=== PATIENT | male | born 1950 | race Caucasian/White ===

== ENCOUNTER 2023-06-18 16:24 | Inpatient (IN) ==
--- NOTE | 2023-06-18 17:21 | DR.GENAD ---
HPI Time Seen Time Seen by Provider: 06/18/23 17:20 PCP Primary Care Physician: Ольга Complaint/Symptoms Chief Complaint Doctors Comments: 72-year-old male presents for evaluation. Having increasing swelling, redness and drainage from the medial aspect of his right foot. Did fall off not too long ago, but did not think he had a wound of the area. Area has gotten worse over the last week. It has been draining over the past few days. Patient with a history of diabetes, denies previous ulceration of the area. He denies any fever, but he is cold all the time. He denies any bowel or bladder issues, no cough or shortness of breath. Chief Complaint:: Puss draining from right foot mass Self Treatment fo Chief Complaint: N/A COVID-19 Coronavirus risk:travel/contact w/high risk person: No Has patient experienced Coronavirus symptoms: No Nurses notes reviewed Nurses Notes Review: Yes Source History Provided: Patient Mode of Arrival Mode of Arrival: Ambulatory Timing Onset of Chief Complaint: 06/16/23 PMH PMH Past Medical History: Yes Past Medical History: Depression, Diabetes, GERD and Hypertension Past Surgical History: Yes Past Surgical History Comment: Prostate, skin cancer removal, Family History History of Family Medical Conditions: Yes Family Medical History: DC and Heart Failure Family Medical History Comment: Father= DC Mother = CHF Social History Does patient currently use any type of tobacco product: Yes Have you used tobacco products in the last 12 months: Yes Type of Tobacco Use: Cigars How many years tobacco product used: 50 Does any household member use tobacco: No Alcohol Use: None Do you use any recreational Drugs:: No Lives With: Family Travel Risk Coronavirus risk:travel/contact w/high risk person: No Has patient experienced Coronavirus symptoms: No Infectious screening In the last 2 months have you had wt loss of >10#?: NO Have you had fever, night sweats or hemotysis?: No Have you traveled outside the country in the last 6 months?: No Isolation: Standard ROS Review of Systems Constitutional: Chills Eyes: No Symptoms Reported ENTM: No Symptoms Reported Respiratoy: No Symptoms Reported Cardiovascular: No Symptoms Reported Gastrointestinal/Abdominal: No Symptoms Reported Genitourinary: No Symptoms Reported Neurological: No Symptoms Reported Musculoskeletal: See HPI Integumentary: See HPI Hematologic/Lymphatic: No Symptoms Reported All Other Systems: Reviewed and Negative PE Vital Signs Vitals: Vital Signs Temperature 99.2 F Pulse Rate 93 Respiratory Rate 17 Blood Pressure 152/74 O2 Sat by Pulse Oximetry 98 General General Appearance: Alert and In No Apparent Distress Eyes Eye exam: PERRL and EOMI ENT ENT Exam: Normal Exam, Normal Oropharynx and Mucous Membranes Moist Neck Neck Exam: Normal Inspection Respiratory Respiratory Exam: Normal Lung Sounds Bilat; negative Accessory Muscle Use or Respiratory Distress Cardiovascular Cardiovascular Exam: Regular Rate, Normal Rhythm and Normal Heart Sounds Abdominal Exam Abdominal Exam: Normal Bowel Sounds and Soft; negative Tenderness Neurologic Neurological Exam: Alert, Oriented X3 and CN II-XII Intact; negative Motor Sensory Deficit Skin Skin Exam: Warm and Dry Other Exam Other Exam: R foot - + large, draining wound of medial right foot, 5 x 6 cms, with marked surrounding erythema. + tenderness. COURSE Treatment Treatment: 72-year-old male, history of diabetes, presents with a draining foot ulceration over the past week. Clinically with a draining abscess of the foot, with surrounding cellulitis of the foot. Work-up initiated. Patient given IV fluids. Cultures obtained - ordered IV zosyn, IV vancomycin. Consulted with Dr Billings, foot will need drainage. X-rays of left foot obtained - + some gas evident in the soft tissue. Discussed with Dr Billings - will admit the pt, coming to see tonight. ROR Labs Reviewed Laboratory Results Reviewed?: Yes 06/19/23 05:21 06/19/23 05:21 Laboratory: 06/18/23 17:45 Foot - Right Wound Gram Stain - Final WBC 17.5 X10^3/uL (3.6-10.0) H 06/18/23 17:36 RBC 4.52 X10^6/uL (4.7-6.0) L 06/18/23 17:36 Hgb 12.5 g/dL (13.5-18.0) L 06/18/23 17:36 Hct 36.6 % (42.0-54.0) L 06/18/23 17:36 MCV 81.0 fL (80.0-100.0) 06/18/23 17:36 MCH 27.6 pg (27.0-34.0) 06/18/23 17:36 MCHC 34.0 g/dL (33.0-35.0) 06/18/23 17:36 RDW 12.9 % (11.6-16.5) 06/18/23 17:36 Plt Count 521 X10^3/uL (150.0-450.0) H 06/18/23 17:36 MPV 7.6 fL (7.4-11.0) 06/18/23 17:36 Neut % (Auto) 83.8 % (42.0-75.0) H 06/18/23 17:36 Lymph % (Auto) 5.7 % (21.0-51.0) L 06/18/23 17:36 [place] % (Auto) 8.5 % (0.0-13.0) 06/18/23 17:36 Eos % (Auto) 1.3 % (0.9-2.9) 06/18/23 17:36 Baso % (Auto) 0.7 % (0.2-1.0) 06/18/23 17:36 Neut # (Auto) 14.7 x10^3/uL (2.2-4.8) H 06/18/23 17:36 Lymph # (Auto) 1.0 X10^3/uL (1.3-2.9) L 06/18/23 17:36 [place] # (Auto) 1.5 x10^3/uL (0.3-0.8) H 06/18/23 17:36 Eos # (Auto) 0.2 x10^3/uL (0.0-0.2) 06/18/23 17:36 Baso # (Auto) 0.1 X10^3/uL (0.0-0.1) 06/18/23 17:36 Absolute Nucleated RBC 0.1 /100WBC 06/18/23 17:36 Sodium 134 mmol/L (136-145) L 06/18/23 17:36 Corrected Sodium 134 mmol/L (136-145) L 06/18/23 17:36 Potassium 4.3 mmol/L (3.5-5.1) 06/18/23 17:36 Chloride 96 mmol/L (98-107) L 06/18/23 17:36 Carbon Dioxide 31.8 mmol/L (21-32) 06/18/23 17:36 BUN 24 mg/dL (7-18) H 06/18/23 17:36 Creatinine 1.23 mg/dL (0.70-1.30) 06/18/23 17:36 Est GFR (MDRD) Af Amer > 60 (>60) 06/18/23 17:36 Est GFR (MDRD) Non-Af > 60 (>60) 06/18/23 17:36 Glucose 114 mg/dL (65-99) H 06/18/23 17:36 Lactic Acid 1.1 mmol/L (0.4-2.0) 06/18/23 17:36 Calcium 9.1 mg/dL (8.5-10.1) 06/18/23 17:36 Corrected Calcium 10.9 mg/dL (8.5-10.1) H 06/18/23 17:36 Total Bilirubin 0.70 mg/dL (0.2-1.0) 06/18/23 17:36 AST 34 Units/L (15-37) 06/18/23 17:36 ALT 34 Units/L (12-78) 06/18/23 17:36 Alkaline Phosphatase 189 Units/L (46-116) H 06/18/23 17:36 Total Protein 7.4 g/dL (6.4-8.2) 06/18/23 17:36 Albumin 1.7 g/dL (3.4-5.0) L 06/18/23 17:36 Globulin 5.7 g/dL (2.5-4.5) H 06/18/23 17:36 Albumin/Globulin Ratio 0.3 Ratio (1.1-2.1) L 06/18/23 17:36 XRAY XRAY Interpreted by: Self X-ray Results: + gas in soft tissue Opioid Opioid Risk Tool Age (Spike box if 16-45): No History of Preadolescent Sexual Abuse: No Total: 0 Total Score Risk Category: Low Risk Copyright: Orville NAVARRO predicting aberrant behaviors Discharge Plan Diagnosis Discharge Problem: Abscess of right foot, Cellulitis of right foot Discharge Plan Patient Disposition: 09 ADMITTED INPATIENT Condition: Stable
[2023-06-18] MEDS ORDERED: NS 500 ML IV 500 ML IV ONE ×2 (17:28→17:30)
[2023-06-18 17:51] LABS: BASOPHILS # (AUTO) 0.1 X10^3/uL (0.0-0.1); BASOPHILS % (AUTO) 0.7 % (0.2-1.0); EOSINOPHILS # (AUTO) 0.2 x10^3/uL (0.0-0.2); EOSINOPHILS % (AUTO) 1.3 % (0.9-2.9); HEMATOCRIT 36.6 % (42.0-54.0); HEMOGLOBIN 12.5 g/dL (13.5-18.0); LYMPHOCYTES % (AUTO) 5.7 % (21.0-51.0); MEAN CORPUSCULAR HEMOGLOBIN 27.6 pg (27.0-34.0); MEAN PLATELET VOLUME 7.6 fL (7.4-11.0); MONOCYTES # (AUTO) 1.5 x10^3/uL (0.3-0.8); MONOCYTES % (AUTO) 8.5 % (0.0-13.0); NEUTROPHILS # (AUTO) 14.7 x10^3/uL (2.2-4.8); NEUTROPHILS % (AUTO) 83.8 % (42.0-75.0); PLATELET COUNT 521 X10^3/uL (150.0-450.0); RED BLOOD COUNT 4.52 X10^6/uL (4.7-6.0); RED CELL DISTRIBUTION WIDTH 12.9 % (11.6-16.5); WHITE BLOOD COUNT 17.5 X10^3/uL (3.6-10.0)
[2023-06-18 18:07] LABS: ALANINE AMINOTRANSFERASE 34 Units/L (12-78); ALBUMIN 1.7 g/dL (3.4-5.0); ALKALINE PHOSPHATASE 189 Units/L (46-116); ASPARTATE AMINO TRANSFERASE 34 Units/L (15-37); BLOOD UREA NITROGEN 24 mg/dL (7-18); CALCIUM 9.1 mg/dL (8.5-10.1); CARBON DIOXIDE 31.8 mmol/L (21-32); CHLORIDE 96 mmol/L (98-107); COR CA(FOR HYPOALB) 10.9 mg/dL (8.5-10.1); COR NA(FOR HYPERGLY) 134 mmol/L (136-145); CREATININE 1.23 mg/dL (0.70-1.30); GLUCOSE 114 mg/dL (65-99); POTASSIUM 4.3 mmol/L (3.5-5.1); SODIUM 134 mmol/L (136-145); TOTAL PROTEIN 7.4 g/dL (6.4-8.2); eGFR NON BLACK RACES > 60 (>60)
[2023-06-18] MEDS ORDERED: ZOSYN VIAL 3.375 GRAMS 3.375 G in NS 100 ML IV 100 ML IV STA (18:11)
[2023-06-18] MEDS ORDERED: VANCOMYCIN HCL IV STA (18:11)
[2023-06-18] MEDS ORDERED: NS 100 ML IV 100 ML ONE (18:18)
[2023-06-18] MEDS ORDERED: ZOSYN VIAL 3.375 GRAMS IV ONE (18:18)
[2023-06-18] MEDS ORDERED: VANCOMYCIN IV *PREMIX 1 G/200 ML BAG 1 G/200 ML PIGGYBACK IV ONE (18:30)
[2023-06-18] MEDS ORDERED: VANCOMYCIN IV *PREMIX 1 G/200 ML BAG 1 G/200 ML PIGGYBACK IV STA (19:05)
[2023-06-18] MEDS ORDERED: PHARMACY CONSULT - VANCOMYCIN XX SCH (21:27)
[2023-06-18] MEDS ORDERED: CONSULT PHARMACY - POTASSIUM & MAGNESIUM XX SCH (21:27)
--- NOTE | 2023-06-18 22:10 | RAD ---
EXAM:FOOT, RIGHTHISTORY:Pus draining from right foot mass;COMPARISON:None.TECHNIQUE:AP, oblique and lateral views were acquiredFINDINGS:There is subluxation along the tarsometatarsal row compatible with a Charcot foot. There is gas in the soft tissues predominantly on the dorsum of the foot but also to some extent on the plantar aspect. There are some possible lucent areas in the bone of the base of the 2nd metatarsal and this raises concern for osteomyelitis. Diffuse vascular calcifications are present.IMPRESSION:1. Fallen arch/midfoot compatible with Charcot foot.2. Definite infection in the soft tissues and possible osteomyelitis.THIS IS AN ELECTRONICALLY VERIFIED FINAL [id number]/2023 10:05 PM - Electronically signed by Portillo Babcock MD
[2023-06-18 22:12] VITALS: BMI 25.9
[2023-06-18] MEDS ORDERED: HIBICLENS WASH EXT ONE (22:13)
[2023-06-18] MEDS: D5 1/2 NS 1,000 ML 1,000 ML IV SCH (22:19)
--- NOTE | 2023-06-18 23:08 | DR.H&P ---
H&P History & Physical for Day of: H&P Date: 06/18/23 Chief Complaint Chief Complaint: 72 yo male presented to the ER with large abscess to the medial aspect of the right foot with inflammation . Patient is diabetic with a greater than 50 year tobacco use history . Also with history of depression, GERD and history of prostate cancer. Allergies Allergies Allergy/AdvReac Type Severity Reaction Status Date / Time No Known Allergies Allergy Verified 06/18/23 18:52 History of Present Illness History of Present Illness: see above Past Medical History Past Medical History: Depression, Diabetes, GERD and Hypertension Additional Medical History: Hx of prostate cancer Past Surgical History Additional Surgical History: history of prostate cancer Family History Family Medical History: Diabetes Mellitus, Cancer and Heart Failure Social History Does patient currently use any type of tobacco product: No Have you used tobacco products in the last 12 months: No Type of Tobacco Use: Cigars How many years tobacco product used: 50 Does any household member use tobacco: No Alcohol Use: None Drug Use: None Medications Home Medications: Vitamin D glipizide insulin lisinopril metformin Labs 06/18/23 17:36 06/18/23 17:36 Labs: 06/18/23 17:45 Foot - Right Wound Gram Stain - Final Laboratory WBC 17.5 X10^3/uL (3.6-10.0) H 06/18/23 17:36 RBC 4.52 X10^6/uL (4.7-6.0) L 06/18/23 17:36 Hgb 12.5 g/dL (13.5-18.0) L 06/18/23 17:36 Hct 36.6 % (42.0-54.0) L 06/18/23 17:36 MCV 81.0 fL (80.0-100.0) 06/18/23 17:36 MCH 27.6 pg (27.0-34.0) 06/18/23 17:36 MCHC 34.0 g/dL (33.0-35.0) 06/18/23 17:36 RDW 12.9 % (11.6-16.5) 06/18/23 17:36 Plt Count 521 X10^3/uL (150.0-450.0) H 06/18/23 17:36 MPV 7.6 fL (7.4-11.0) 06/18/23 17:36 Neut % (Auto) 83.8 % (42.0-75.0) H 06/18/23 17:36 Lymph % (Auto) 5.7 % (21.0-51.0) L 06/18/23 17:36 [place] % (Auto) 8.5 % (0.0-13.0) 06/18/23 17:36 Eos % (Auto) 1.3 % (0.9-2.9) 06/18/23 17:36 Baso % (Auto) 0.7 % (0.2-1.0) 06/18/23 17:36 Neut # (Auto) 14.7 x10^3/uL (2.2-4.8) H 06/18/23 17:36 Lymph # (Auto) 1.0 X10^3/uL (1.3-2.9) L 06/18/23 17:36 [place] # (Auto) 1.5 x10^3/uL (0.3-0.8) H 06/18/23 17:36 Eos # (Auto) 0.2 x10^3/uL (0.0-0.2) 06/18/23 17:36 Baso # (Auto) 0.1 X10^3/uL (0.0-0.1) 06/18/23 17:36 Absolute Nucleated RBC 0.1 /100WBC 06/18/23 17:36 Sodium 134 mmol/L (136-145) L 06/18/23 17:36 Corrected Sodium 134 mmol/L (136-145) L 06/18/23 17:36 Potassium 4.3 mmol/L (3.5-5.1) 06/18/23 17:36 Chloride 96 mmol/L (98-107) L 06/18/23 17:36 Carbon Dioxide 31.8 mmol/L (21-32) 06/18/23 17:36 BUN 24 mg/dL (7-18) H 06/18/23 17:36 Creatinine 1.23 mg/dL (0.70-1.30) 06/18/23 17:36 Est GFR (MDRD) Af Amer > 60 (>60) 06/18/23 17:36 Est GFR (MDRD) Non-Af > 60 (>60) 06/18/23 17:36 Glucose 114 mg/dL (65-99) H 06/18/23 17:36 Lactic Acid 1.1 mmol/L (0.4-2.0) 06/18/23 17:36 Calcium 9.1 mg/dL (8.5-10.1) 06/18/23 17:36 Corrected Calcium 10.9 mg/dL (8.5-10.1) H 06/18/23 17:36 Total Bilirubin 0.70 mg/dL (0.2-1.0) 06/18/23 17:36 AST 34 Units/L (15-37) 06/18/23 17:36 ALT 34 Units/L (12-78) 06/18/23 17:36 Alkaline Phosphatase 189 Units/L (46-116) H 06/18/23 17:36 Total Protein 7.4 g/dL (6.4-8.2) 06/18/23 17:36 Albumin 1.7 g/dL (3.4-5.0) L 06/18/23 17:36 Globulin 5.7 g/dL (2.5-4.5) H 06/18/23 17:36 Albumin/Globulin Ratio 0.3 Ratio (1.1-2.1) L 06/18/23 17:36 Review of Systems Constitutional: See HPI Eyes: No Symptoms Reported ENT: No Symptoms Reported Respiratory: No Symptoms Reported Cardiovascular: No Symptoms Reported Gastrointestinal: No Symptoms Reported Genitourinary: No Symptoms Reported Musculoskeletal: No Symptoms Reported Skin: See HPI Neurological: No Symptoms Reported Physical Exam Vital Signs: Vital Signs Temperature 98.2 F Temperature 99.2 F Pulse Rate [Left Radial] 89 Pulse Rate 93 Respiratory Rate 20 Respiratory Rate 20 Respiratory Rate 17 Blood Pressure [Right Arm] 179/79 Blood Pressure 152/74 O2 Sat by Pulse Oximetry 95 O2 Sat by Pulse Oximetry 98 O2 Sat by Pulse Oximetry 98 Oriented: Normal, Time, Person and Place Eyes: Normal Ear: Normal Nose: Normal Throat: Normal Respiratory: Clear Throughout Cardiovascular: Normal and Other (Cannot palpate pulses either ankle. ) : Normal Auscultation: Bowel Sounds: Normal Palpation: Normal Tenderness: Normal Skin: Tender and Wound (10 cm abscess to medial right foot . surrounding cellulitis ) Musculoskeletal: Normal Psychiatric: Anxiety Mood Description: Calm Affect: Normal Speech Pattern: Clear Assessment/Plan (1) Atherosclerosis of [place] arteries of extremities with intermittent claudication, right leg: Status: Acute Plan: obtain CTA of aorta with runoff [place] (2) Abscess of right foot: Status: Acute Plan: IV antibiotics and will plan incision and drainage of right foot a bscess and place wound vacuum. (3) Cellulitis of right foot: Status: Acute
--- NOTE | 2023-06-18 23:31 | EKG ---
Test Reason : surgery Blood Pressure : */* mmHG Vent. Rate : 90 BPM Atrial Rate : 90 BPM P-R Int : 162 ms QRS Dur : 86 ms QT Int : 378 ms P-R-T Axes : 20 0 51 degrees QTc Int : 462 ms Normal sinus rhythm Normal ECG No previous ECGs available Confirmed by Tejas Li ([id number]) on 06/19/2023 7:56:12 AM Referred By: Confirmed By: Tejas Li
[2023-06-19] MEDS: ZOSYN VIAL 3.375 GRAMS 3.375 G in NS 100 ML IV 100 ML IV SCH ×3 (03:16→21:56)
[2023-06-19] MEDS ORDERED: OMNIPAQUE 350 mg/mL 100 mL BTL 100 ML ONE (03:54)
[2023-06-19] MEDS ORDERED: OMNIPAQUE 350 mg/mL 50 mL BTL 50 ML ONE (03:54)
[2023-06-19] MEDS ORDERED: NS 100 ML IV 100 ML ONE (03:54)
[2023-06-19] MEDS: NovoLIN R (or HumuLIN R) SC PRN ×3 (05:34→20:52)
[2023-06-19 05:49] LABS: BASOPHILS # (AUTO) 0.1 X10^3/uL (0.0-0.1); BASOPHILS % (AUTO) 0.6 % (0.2-1.0); EOSINOPHILS # (AUTO) 0.3 x10^3/uL (0.0-0.2); HEMATOCRIT 30.1 % (42.0-54.0); LYMPHOCYTES # (AUTO) 1.2 X10^3/uL (1.3-2.9); LYMPHOCYTES % (AUTO) 8.4 % (21.0-51.0); MEAN CORPUSCULAR HEMOGLOBIN 27.3 pg (27.0-34.0); MEAN CORPUSCULAR HGB CONC 34.3 g/dL (33.0-35.0); MEAN CORPUSCULAR VOLUME 79.7 fL (80.0-100.0); MEAN PLATELET VOLUME 7.9 fL (7.4-11.0); MONOCYTES # (AUTO) 1.4 x10^3/uL (0.3-0.8); MONOCYTES % (AUTO) 9.9 % (0.0-13.0); NEUTROPHILS # (AUTO) 11.3 x10^3/uL (2.2-4.8); NEUTROPHILS % (AUTO) 79.1 % (42.0-75.0); PLATELET COUNT 442 X10^3/uL (150.0-450.0); RED BLOOD COUNT 3.77 X10^6/uL (4.7-6.0); RED CELL DISTRIBUTION WIDTH 13.3 % (11.6-16.5); WHITE BLOOD COUNT 14.3 X10^3/uL (3.6-10.0)
[2023-06-19 05:51] LABS: HEMOGLOBIN 10.3 g/dL (13.5-18.0)
[2023-06-19 06:02] LABS: ALANINE AMINOTRANSFERASE 30 Units/L (12-78); ALBUMIN 1.3 g/dL (3.4-5.0); ALKALINE PHOSPHATASE 161 Units/L (46-116); ASPARTATE AMINO TRANSFERASE 28 Units/L (15-37); BLOOD UREA NITROGEN 24 mg/dL (7-18); CALCIUM 8.1 mg/dL (8.5-10.1); CARBON DIOXIDE 26.2 mmol/L (21-32); CHLORIDE 98 mmol/L (98-107); COR CA(FOR HYPOALB) 10.3 mg/dL (8.5-10.1); COR NA(FOR HYPERGLY) 135 mmol/L (136-145); CREATININE 1.13 mg/dL (0.70-1.30); GLUCOSE 198 mg/dL (65-99); POTASSIUM 3.7 mmol/L (3.5-5.1); SODIUM 133 mmol/L (136-145); TOTAL PROTEIN 5.8 g/dL (6.4-8.2); eGFR NON BLACK RACES > 60 (>60)
[2023-06-19] MEDS ORDERED: CONSULT PHARMACY - POTASSIUM & MAGNESIUM XX SCH (07:00)
[2023-06-19] MEDS ORDERED: MAG-OX TAB PO SCH (08:00)
[2023-06-19] MEDS: ZESTRIL TAB 5 MG PO SCH (08:40)
[2023-06-19] MEDS ORDERED: K-DUR TAB 20 MEQ PO SCH (09:00)
[2023-06-19] MEDS: D5 1/2 NS 1,000 ML 1,000 ML IV SCH ×3 (09:48→20:53)
[2023-06-19] MEDS: MAG-OX TAB PO SCH ×2 (09:52→10:51)
--- NOTE | 2023-06-19 10:06 | CT ---
EXAM:CTA AORTA WITH RUNOFFHISTORY:ISCHEMIC RIGHT LEG/FOOT W/CELLULITIS AND ABSCESS; DMCOMPARISON:NoneTECHNIQUE:Multiple CT axial images of the abdomen pelvis and lower extremity runoff were obtained before and after using IV contrast. 3D reconstructions utilizing axial MIPS imaging was performed and reviewed. Dose reduction techniques including Automated Exposure Control (AEC) and adjustment of mA and kV were utilized.Stenoses are measured using NASCET criteria.FINDINGS:Without contrast: Atherosclerotic calcification is present in the coronary arteries, aorta, and major arterial branches. Small calcified stone left kidney measures 3 mm.With contrast: Aorta has a normal caliber with no aneurysm, dissection, or stenosis. All 3 mesenteric vessels are patent. There are 2 arteries to each kidney.Common iliac and external iliac arteries are widely patent. Both internal iliac arteries are also patent.Right lower extremity: There is no significant femoropopliteal artery occlusion. There is a moderate to severe stenosis origin of the anterior tibial artery. The anterior tibial artery is the only continuous patent vessel that extends to the foot. Both the peroneal artery and posterior tibial artery have occlusions in the proximal calf.Left lower extremity: No significant femoropopliteal artery occlusion. There is a severe stenosis at the origin of the anterior tibial artery which is the only continuous patent vessel that extends to the foot. Tibioperoneal trunk is occluded. Posterior tibial artery in the peroneal artery are reconstituted near the ankle.Body: There is emphysema in the soft tissues of the right lower extremity. This is in the deep muscular compartment of the anterior lower leg and extends into the foot. If the patient does not have an open wound, this might represent emphysematous cellulitis.No biliary obstruction. No inflammation around the gallbladder. No hydronephrosis. No bowel obstruction. Small bilateral inguinal hernias contain fat.IMPRESSION:1. No significant inflow occlusion2. Single-vessel JIMMY runoff to each foot with severe proximal stenoses3. Findings suggesting emphysematous cellulitis in the right leg and foot4. Nonobstructing left renal calculusTHIS IS AN ELECTRONICALLY VERIFIED FINAL [id number]/19/2023 10:02 AM - Electronically signed by Carlos Flores MD
--- NOTE | 2023-06-19 10:56 | RAD ---
EXAM:CHEST x-ray, 1 VIEWHISTORY:PRE OP-RIGHT FOOT ABSCESS W/CELLULITIS -COMPARISON:None.FINDINGS:Trace fluid is seen in the right minor fissure. Borderline CHF appearance may be accentuated due to AP portable technique. No pneumothorax, focal infiltrate, or pleural effusion is seen.IMPRESSION:Borderline CHF appearance may be accentuated due to AP portable technique.THIS IS AN ELECTRONICALLY VERIFIED FINAL [id number]/19/2023 10:53 AM - Electronically signed by Abel Castellanos MD
[2023-06-19] MEDS ORDERED: BETADINE SOLN ONE (15:01)
[2023-06-19] MEDS ORDERED: MARCAINE 0.5% ONE (15:54)
[2023-06-19] MEDS ORDERED: NS 1,000 ML IV 1,000 ML ONE (16:14)
[2023-06-19] MEDS ORDERED: VERSED ONE (16:42)
[2023-06-19] MEDS ORDERED: DIPRIVAN VIAL 20 ML ONE (16:42)
[2023-06-19] MEDS ORDERED: FENTANYL VIAL INJ 100 mcg ONE (16:42)
--- NOTE | 2023-06-19 17:11 | OR.IMMED ---
IMMEDIATE POST-OP NOTE Immediate Post-Op Note Date of surgery/procedure: 06/19/23 Pre-Op Diagnosis: abscess/ cellulitis medial right foot Post-Op Diagnosis: same Procedure: Incise, drain , culture right foot wound and place wound vacuun Description of Procedure: dictated Surgeon/Lime Mixer: Manuelito Findings: As above, CTA only shows one vessel runoff to the right foot (anterior tibial artery) Specimens Removed: Culture right foot wound Estimated Blood Loss: minimal Complications: none Progress Notes: to floor with wound vacuum in place, continue IV antibiotics, resume diet, arteriogram and intervention right foot arteries tomorrow
[2023-06-19] MEDS: VANCOMYCIN IV *PREMIX 1.25 G/250 ML BAG 1.25 G/250 ML PIGGYBACK IV SCH (20:53)
[2023-06-20] MEDS: D5 1/2 NS 1,000 ML 1,000 ML IV SCH ×2 (00:21→20:22)
[2023-06-20] MEDS: ZOSYN VIAL 3.375 GRAMS 3.375 G in NS 100 ML IV 100 ML IV SCH ×4 (05:06→22:23)
[2023-06-20 05:07] LABS: BASOPHILS # (AUTO) 0.1 X10^3/uL (0.0-0.1); BASOPHILS % (AUTO) 0.8 % (0.2-1.0); EOSINOPHILS # (AUTO) 0.4 x10^3/uL (0.0-0.2); EOSINOPHILS % (AUTO) 2.9 % (0.9-2.9); HEMATOCRIT 30.1 % (42.0-54.0); HEMOGLOBIN 10.3 g/dL (13.5-18.0); LYMPHOCYTES # (AUTO) 1.1 X10^3/uL (1.3-2.9); LYMPHOCYTES % (AUTO) 7.5 % (21.0-51.0); MEAN CORPUSCULAR HEMOGLOBIN 27.5 pg (27.0-34.0); MEAN CORPUSCULAR HGB CONC 34.2 g/dL (33.0-35.0); MEAN CORPUSCULAR VOLUME 80.5 fL (80.0-100.0); MEAN PLATELET VOLUME 8.2 fL (7.4-11.0); MONOCYTES # (AUTO) 1.4 x10^3/uL (0.3-0.8); MONOCYTES % (AUTO) 9.9 % (0.0-13.0); NEUTROPHILS # (AUTO) 11.4 x10^3/uL (2.2-4.8); NEUTROPHILS % (AUTO) 78.9 % (42.0-75.0); PLATELET COUNT 476 X10^3/uL (150.0-450.0); RED BLOOD COUNT 3.74 X10^6/uL (4.7-6.0); RED CELL DISTRIBUTION WIDTH 13.3 % (11.6-16.5); WHITE BLOOD COUNT 14.5 X10^3/uL (3.6-10.0)
[2023-06-20 05:15] LABS: BLOOD UREA NITROGEN 24 mg/dL (7-18); CARBON DIOXIDE 25.9 mmol/L (21-32); CHLORIDE 100 mmol/L (98-107); COR NA(FOR HYPERGLY) 137 mmol/L (136-145); CREATININE 1.45 mg/dL (0.70-1.30); GLUCOSE 223 mg/dL (65-99); MAGNESIUM 1.8 mg/dL (2.0-2.9); POTASSIUM 3.9 mmol/L (3.5-5.1); SODIUM 134 mmol/L (136-145); eGFR NON BLACK RACES 51 (>60)
[2023-06-20] MEDS: NovoLIN R (or HumuLIN R) SC PRN ×2 (05:56→11:44)
[2023-06-20] MEDS ORDERED: CONSULT PHARMACY - POTASSIUM & MAGNESIUM XX SCH (07:00)
[2023-06-20] MEDS ORDERED: PHARMACY COMMENT IV NR (08:30)
[2023-06-20] MEDS ORDERED: K-DUR TAB 20 MEQ PO SCH (09:00)
[2023-06-20] MEDS: ZESTRIL TAB 5 MG PO SCH (09:32)
[2023-06-20] MEDS: MAG-OX TAB PO SCH ×2 (09:33→11:37)
[2023-06-20 09:41] LABS: CREATININE 1.56 mg/dL (0.70-1.30); VANCOMYCIN,TROUGH 12.6 ug/mL (15-20)
[2023-06-20] MEDS: VANCOMYCIN IV *PREMIX 1.25 G/250 ML BAG 1.25 G/250 ML PIGGYBACK IV SCH ×2 (10:03→20:22)
--- NOTE | 2023-06-20 10:03 | DR.OPNOTE ---
OP NOTE Pre-Op Diagnosis: Abscess/cellulitis right medial foot Post-Op Diagnosis: same Procedure Date Date Of Procedure: 06/19/23 Procedure: PROCEDURE : Incision and drainage abscess right foot immediately with debridement and placement wound vacuum NARRATIVE : The patient was taken to the operative suite and placed in the Supine position. He was given intravenous sedation supervised by myself. Time out for the procedure obtained . A total of 10 cc's of 0.5 Marcaine was injected into this area of the medial right foot. This was excised with a number 15 knife blade and electrocautery leaving a wound measuring 8 by 8 cm which was approximately 1 cm deep. All necrotic material removed sharply . The medial aspect of the talus bone was exposed. Hemostasis obtained with electrocautery . The wound covered with black foam and then adhesive sheeting. A 1 by 1 cm incision made over the black foam and extension of foam was taking up to the right ankle. The circular track pad placed over the foam over the ankle and this applied to continuous suction at 150 mm of mercury. The patient tolerated this well. Type of Anesthesia: Local (0.5% Marcaine) Anesthesia Comment: plus MAC Findings: as above Specimen/Pathology: cultures right foot abscess Type of Fluids Used:: Lactated Ringers EBL: < 10 cc Cultures: cultures of right foot abscess obtained Complications:: none Needle/Sponge Count:: correct Disposition/Condition: Pt. tolerated procedure without difficulty. Patient taken back to the floor in stable condition.
[2023-06-20] MEDS ORDERED: VISIPAQUE 100 ML ONE ×2 (13:16→15:52)
[2023-06-20] MEDS ORDERED: VISIPAQUE 50 ML ONE (13:16)
[2023-06-20] MEDS ORDERED: MARCAINE 0.5% ONE (15:32)
[2023-06-20] MEDS ORDERED: HEPARIN SODIUM IN D5W 75,000 UNITS/1,500 ML BAG ONE (15:33)
[2023-06-20] MEDS ORDERED: VERSED ONE (15:37)
[2023-06-20] MEDS ORDERED: KETAMINE 50 MG/5 ML-NACL SYRNG ONE (15:37)
[2023-06-20] MEDS ORDERED: FENTANYL VIAL INJ 100 mcg ONE (15:37)
[2023-06-20] MEDS ORDERED: DIPRIVAN VIAL 20 ML ONE ×2 (15:37→16:29)
[2023-06-20] MEDS ORDERED: HEPARIN SODIUM IN D5W 25,000 UNITS/500 ML BAG ONE (15:38)
[2023-06-20] MEDS ORDERED: HEPARIN SODIUM INJ 5000 UNITS ONE (16:02)
[2023-06-20] MEDS ORDERED: NS 1,000 ML IV 1,000 ML ONE (16:24)
[2023-06-20] MEDS ORDERED: PROTAMINE SULFATE 50 MG VIAL ONE (16:49)
--- NOTE | 2023-06-20 17:11 | OR.IMMED ---
IMMEDIATE POST-OP NOTE Immediate Post-Op Note Date of surgery/procedure: 06/20/23 Pre-Op Diagnosis: Critical ischemia right foot, abscess right medial foot Post-Op Diagnosis: same Procedure: diagnostic aortogram, diagnostic arteriogram right leg, severe stenosis take off of the right anterior tibial artery which is the only vessel to the foot, occluded peroneal and posterior tibial arteries of right foot Description of Procedure: dictated Surgeon/[place] Former: Manuelito Findings: severe stenosis at the take-off of the right anterior tibial artery ,rest of anterior tibial artery is patent into the foot. Occluded right peroneal and right posterior tibial artery with no obvious reconstitution in the foot. Significant collateral flow around the right foot. Estimated Blood Loss: < 100 cc Complications: none Progress Notes: Patient returned to the floor. Continue IV antibiotics and pain medication. Will begin aspirin. Anticoagulation will begin in a couple of days. Will consult Podiatry for his Charcot foot with medial protrusion of the navicular bone originating at the area of abscess. Continuing wound vacuum .
[2023-06-20] MEDS ORDERED: XOPENEX 1.25 MG/3 ML NEBULE NEB ONE ×2 (19:02→19:43)
[2023-06-20] MEDS ORDERED: CATAPRES TAB 0.1 MG PO ONE (19:09)
[2023-06-20] MEDS ORDERED: CATAPRES TAB 0.1 MG ONE (19:10)
[2023-06-21] MEDS: D5 1/2 NS 1,000 ML 1,000 ML IV SCH ×3 (04:12→21:05)
[2023-06-21] MEDS: ZOSYN VIAL 3.375 GRAMS 3.375 G in NS 100 ML IV 100 ML IV SCH ×3 (05:44→21:08)
[2023-06-21 06:04] LABS: BASOPHILS # (AUTO) 0.2 X10^3/uL (0.0-0.1); EOSINOPHILS # (AUTO) 0.5 x10^3/uL (0.0-0.2); EOSINOPHILS % (AUTO) 3.1 % (0.9-2.9); HEMATOCRIT 29.9 % (42.0-54.0); HEMOGLOBIN 10.2 g/dL (13.5-18.0); LYMPHOCYTES # (AUTO) 1.3 X10^3/uL (1.3-2.9); LYMPHOCYTES % (AUTO) 8.3 % (21.0-51.0); MEAN CORPUSCULAR HEMOGLOBIN 27.5 pg (27.0-34.0); MEAN CORPUSCULAR HGB CONC 34.1 g/dL (33.0-35.0); MEAN CORPUSCULAR VOLUME 80.6 fL (80.0-100.0); MEAN PLATELET VOLUME 7.8 fL (7.4-11.0); MONOCYTES # (AUTO) 1.3 x10^3/uL (0.3-0.8); MONOCYTES % (AUTO) 8.9 % (0.0-13.0); NEUTROPHILS # (AUTO) 11.9 x10^3/uL (2.2-4.8); NEUTROPHILS % (AUTO) 78.7 % (42.0-75.0); PLATELET COUNT 543 X10^3/uL (150.0-450.0); RED CELL DISTRIBUTION WIDTH 13.4 % (11.6-16.5); WHITE BLOOD COUNT 15.1 X10^3/uL (3.6-10.0)
[2023-06-21] MEDS: NovoLIN R (or HumuLIN R) SC PRN (06:06)
[2023-06-21 06:20] LABS: CALCIUM 8.1 mg/dL (8.5-10.1); CARBON DIOXIDE 26.2 mmol/L (21-32); CREATININE 1.73 mg/dL (0.70-1.30); MAGNESIUM 1.8 mg/dL (2.0-2.9); POTASSIUM 4.3 mmol/L (3.5-5.1)
--- NOTE | 2023-06-21 06:29 | DR.CONSULT ---
CONSULT Consultation for Day of: Date: 06/21/23 Chief Complaint Chief Complaint: charcot foot with abscess and exposed midfoot bones Allergies Allergies Allergy/AdvReac Type Severity Reaction Status Date / Time No Known Allergies Allergy Verified 06/18/23 18:52 History of Present Illness History of Present Illness: patient admitted saturday and taken to OR with [facility] for intervention as well as I&D of abscess of the foot on right. patient was found to have abscess and now with exposed bone due to charcot foot with midfoot dislocation. Past Medical History Past Medical History: Depression, Diabetes, GERD and Hypertension Additional Medical History: Hx of prostate cancer Past Surgical History Additional Surgical History: history of prostate cancer Family History Family Medical History: Diabetes Mellitus, Cancer and Heart Failure Social History Does patient currently use any type of tobacco product: No Have you used tobacco products in the last 12 months: No Type of Tobacco Use: Cigars How many years tobacco product used: 50 Does any household member use tobacco: No Alcohol Use: None Drug Use: None Medications Home Medications: No Known Allergies Allergy (Verified 06/18/23 18:52) CONTINUE taking the following medications cholecalciferol (vitamin D3) 50 mcg (2,000 unit) tablet (Vitamin D3) 100 mcg PO DAILY 06/18/23 [History] glipizide 10 mg tablet 10 mg PO QAM 06/18/23 [History] insulin glargine 100 unit/mL subcutaneous solution 10 unit subcut DAILYAC 06/18/23 [History] lisinopril 2.5 mg tablet 2.5 mg PO DAILY 06/18/23 [History] metformin 500 mg tablet 500 mg PO BID 06/18/23 [History] glipizide 10 mg tablet 5 mg PO 1700 06/19/23 [History] Physical Exam Vital Signs: Vital Signs Temperature 98.5 F Temperature 98.2 F Pulse Rate [Left Radial] 78 Pulse Rate [Left Radial] 83 Respiratory Rate 18 Respiratory Rate 17 Blood Pressure [Right Arm] 160/88 Blood Pressure [Right Arm] 140/66 O2 Sat by Pulse Oximetry 98 O2 Sat by Pulse Oximetry 97 Skin: Other (has increased calor to the leg ankle and foot. has open midfoot dislocation with exposed cueniform. he has presumed osteo of the midfoot with severe soft tissue defect that is 6.5cm x 7.5cm full thickness with exposed medial cuneiform. ) Plan (1) Atherosclerosis of [place] arteries of extremities with intermittent claudication, right leg: Status: Acute Narrative Support Text: Manuelito has performed intervention. (2) Abscess of right foot: Status: Acute Narrative Support Text: exposed midfoot cueniform at this time. will need return to OR as patient with still at risk limb with severe DM foot infection with dislcoation. will need stabilization with external fixator and washout with deep bone bx and reduction of foot. (3) Cellulitis of right foot: Status: Acute (4) Charcot arthropathy of midfoot: Status: Acute Narrative Support Text: will need midfoot stabilization due to fracture dislocation and exposd bone. ok to eat breakfast. will plan for reduction this evening after 4pm. NPO after 8am.
[2023-06-21] MEDS ORDERED: CONSULT PHARMACY - POTASSIUM & MAGNESIUM XX SCH (07:00)
[2023-06-21] MEDS: MAG-OX TAB PO SCH (09:36)
[2023-06-21] MEDS: LOVENOX INJ 40 MG SYR SC SCH (09:36)
[2023-06-21] MEDS: ZESTRIL TAB 5 MG PO SCH ×2 (09:37→22:30)
[2023-06-21] MEDS: VANCOMYCIN IV *PREMIX 1.25 G/250 ML BAG 1.25 G/250 ML PIGGYBACK IV SCH (10:15)
[2023-06-21] MEDS ORDERED: NS 1,000 ML IV 1,000 ML ONE (16:30)
[2023-06-21] MEDS ORDERED: ANCEF VIAL 1 GRAM ONE (16:30)
[2023-06-21] MEDS ORDERED: NS 100 ML IV 100 ML ONE (16:30)
[2023-06-21] MEDS ORDERED: VERSED ONE (16:37)
[2023-06-21] MEDS ORDERED: FENTANYL VIAL INJ 100 mcg ONE (16:37)
[2023-06-21] MEDS ORDERED: DIPRIVAN VIAL 20 ML ONE (16:37)
[2023-06-21] MEDS ORDERED: BRIDION ONE (16:37)
[2023-06-21] MEDS ORDERED: ZOFRAN INJ 4 MG VIAL ONE (16:38)
[2023-06-21] MEDS ORDERED: QUELICIN (OR ANECTINE) ONE (16:38)
[2023-06-21] MEDS ORDERED: ZEMURON 100 MG VIAL ONE (16:38)
[2023-06-21] MEDS ORDERED: PEPCID 20 MG VIAL ONE (16:38)
[2023-06-21] MEDS ORDERED: BETADINE SOLN ONE (16:41)
[2023-06-21] MEDS ORDERED: MARCAINE 0.25% INJ ONE (16:41)
[2023-06-21] MEDS ORDERED: SUPRANE ONE (16:48)
[2023-06-21] MEDS ORDERED: XYLOCAINE 2 % (PLAIN) ONE (16:52)
--- NOTE | 2023-06-21 18:03 | NOTE.SOAP ---
Soap Note Note for Day of Date of Exam: 06/21/23 Subjective Data Subjective Data: Appreciate Dr. Mueller's input. Patient to be taken to OR by Dr. Mueller for placement of external fixator right foot, possible removal of cuneiform which with the Charcot foot has caused the violation of the skin of the medial right foot. Will remain in hospital over weekend over the weekend with wound vacuum in place. Objective Data Temperature: 97.6 F Pulse Rate: 88 Respiratory Rate: 18 Blood Pressure: 186/107 O2 Sat by Pulse Oximetry: 99 Objective Data: Redness right foot continues to improve. Palpable right anterior tibial artery. Assessment Assessment: Cellulitis/ abscess, Charcot right foot and critical ischemia right foot all addressed or being addressed in order to salvage his foot. Plan Plan: As above , Continue IV antibiotics and wound vacuum. Begin Xarelto and aspirin tomorrow.
[2023-06-21] MEDS ORDERED: BARHEMSYS INJ IVP PRN (18:17)
[2023-06-21] MEDS ORDERED: ZOFRAN INJ 4 MG VIAL IVP PRN (18:17)
[2023-06-21] MEDS ORDERED: DILAUDID INJ IVP PRN (18:17)
[2023-06-21] MEDS ORDERED: REGLAN INJ 10 MG VIAL IVP PRN (18:17)
[2023-06-21] MEDS ORDERED: BENADRYL INJ 50 MG VIAL IVP PRN (18:17)
[2023-06-21] MEDS ORDERED: NORCO 5/325 MG TAB PO PRN (19:28)
[2023-06-21] MEDS ORDERED: PHARMACY COMMENT IV NR (20:30)
[2023-06-21 21:04] LABS: CREATININE 1.65 mg/dL (0.70-1.30)
[2023-06-21 21:09] LABS: VANCOMYCIN,TROUGH 23.4 ug/mL (15-20)
[2023-06-21] MEDS ORDERED: CATAPRES TAB 0.1 MG PO ONE (22:18)
[2023-06-21] MEDS: DILAUDID INJ IVP PRN (23:00)
[2023-06-22] MEDS: D5 1/2 NS 1,000 ML 1,000 ML IV SCH ×2 (02:57→16:38)
[2023-06-22] MEDS: DILAUDID INJ IVP PRN (05:45)
[2023-06-22] MEDS: ZOSYN VIAL 3.375 GRAMS 3.375 G in NS 100 ML IV 100 ML IV SCH ×3 (05:46→21:30)
[2023-06-22] MEDS: NovoLIN R (or HumuLIN R) SC PRN ×3 (07:22→16:38)
--- NOTE | 2023-06-22 07:49 | NOTE.SOAP ---
Soap Note Note for Day of Date of Exam: 06/22/23 Subjective Data Subjective Data: POD1 Open reduction, bone debridement with application of external fixator. Patient was pleasant this am with no significant pain or complaints. He is resting comfortably in bed eating breakfast. Denies any nausea, vomiting, fever, chills, chest pain, calf pain or SOB Objective Data Objective Data: Open wound to the medial aspect of the right foot at the instep. Wound has serosanguinous drainage and the cerement is intact within the void. Pin sites are clear of infection or drainage. Neurovascular status has not changed since pre op Assessment Assessment: S/P Bone debridement, open reduction and application of external fixation, Right leg (DOS: 06/21/2023) Charcot Arthropathy, Right Osteomyelitis, Right foot Plan Plan: Patient was seen at bedside POD1. Doing well, pain is well controlled on scheduled medication. Patient understands that this is a limb salvage procedure. Continue anticoagulants and IV antibiotics. Dressings were changed this am. PT gait train: WB at 50% to the RLE with assistive device. Dr. Mueller spoke to the patient's son yesterday and discussed discharge plan. Patient will need to be set up in a care facility ([place]) as he lives on his own and will need assistance. From podiatry standpoint, we will be monitoring through the weekend and if all is well, we would like to remove the antibiotic cement and apply a wound vac on Saturday.
[2023-06-22] MEDS ORDERED: MAG-OX TAB ONE (08:48)
[2023-06-22] MEDS: ZESTRIL TAB 5 MG PO SCH (08:55)
[2023-06-22] MEDS: MAG-OX TAB PO SCH (08:56)
[2023-06-22] MEDS: LOVENOX INJ 40 MG SYR SC SCH (08:57)
[2023-06-22] MEDS: VANCOMYCIN IV *PREMIX 1.25 G/250 ML BAG 1.25 G/250 ML PIGGYBACK IV SCH (09:10)
--- NOTE | 2023-06-22 13:20 | NOTE.SOAP ---
Soap Note Note for Day of Date of Exam: 06/22/23 Subjective Data Subjective Data: Doing well after drainage right foot abscess and revascularization right foot. Yesterday Dr. Mueller removed the right medial cuneiforms with osteromyelitis and applied external fixator, lengthened the Achllies and applied antibiotic impregnated cement in the right medial foot wound . Cement to be removed on Saturday and wound vacuum applied . Continue on IV antibiotics. HTN treated last night Objective Data Temperature: 97.8 F Pulse Rate: 71 Respiratory Rate: 18 Blood Pressure: 152/75 O2 Sat by Pulse Oximetry: 100 Objective Data: External fixator in place right foot . Nearly all redness resolved right foot Assessment Assessment: Abscess right foot with osteomyelitis and critical limb ischemia, s/o incision and drainage, revascularization right foot and subsequent removal infected right cuneiforms and placement external fixator. Plan Plan: Continue IV antibiotics. To OR Saturday to remove cement and place wound vacuum right medial foot.
[2023-06-22] MEDS: XARELTO PO SCH (20:33)
[2023-06-22] MEDS: XOPENEX 1.25 MG/3 ML NEBULE NEB PRN (21:45)
[2023-06-23] MEDS: D5 1/2 NS 1,000 ML 1,000 ML IV SCH ×3 (01:01→12:51)
[2023-06-23] MEDS ORDERED: CATAPRES TAB 0.1 MG PO ONE ×2 (04:12→17:27)
[2023-06-23] MEDS: XOPENEX 1.25 MG/3 ML NEBULE NEB PRN ×2 (04:42→17:20)
[2023-06-23] MEDS ORDERED: LOPRESSOR TAB 25 MG PO ONE (05:29)
[2023-06-23] MEDS: ZOSYN VIAL 3.375 GRAMS 3.375 G in NS 100 ML IV 100 ML IV SCH ×3 (05:41→21:35)
[2023-06-23] MEDS: NovoLIN R (or HumuLIN R) SC PRN ×4 (05:55→21:37)
--- NOTE | 2023-06-23 07:52 | NOTE.SOAP ---
Soap Note Note for Day of Date of Exam: 06/22/23 Subjective Data Subjective Data: POD2 Open reduction, bone debridement with application of external fixator. Patient doing well this am, he was found resting comfortably in bed. He denies any symptoms overnight and has not left his bed. Objective Data Objective Data: Open wound to the medial aspect of the right foot at the instep. Wound has continuous serosanguinous drainage and the cerement is intact within the void. Pin sites are clear of infection or drainage. Neurovascular status has not changed since pre op Assessment Assessment: S/P Bone debridement, open reduction and application of external fixation, Right leg (DOS: 06/21/2023) Charcot Arthropathy, Right Osteomyelitis, Right foot Plan Plan: Patient was seen at bedside POD2. Doing well, pain is well controlled on scheduled medication. Patient understands that this is a limb salvage procedure. Continue anticoagulants and IV antibiotics. Dressings were changed this am. PT gait train: WB at 50% to the RLE with assistive device. Patient will need to be set up in a care facility ([place]) as he lives on his own and will need assistance, haven't been able to get a hold of case management and will follow up tomorrow regarding rehab placement. From podiatry standpoint, we will keep the cerement within the wound site and explant it prior to patient being discharged. Noted that home vac supplies are in the room and I filled out home health instructions for the VAC.
[2023-06-23] MEDS: VANCOMYCIN IV *PREMIX 1.25 G/250 ML BAG 1.25 G/250 ML PIGGYBACK IV SCH (09:41)
[2023-06-23] MEDS: ASPIRIN EC 81 MG PO SCH (09:42)
[2023-06-23] MEDS: ZESTRIL TAB 5 MG PO SCH (09:42)
[2023-06-23] MEDS: XARELTO PO SCH ×2 (09:42→21:30)
--- NOTE | 2023-06-23 16:28 | NOTE.SOAP ---
Soap Note Note for Day of Date of Exam: 06/23/23 Subjective Data Subjective Data: Patient doing well. Main problem has been his hypertension. Otherwise very stable. Objective Data Temperature: 98.3 F Pulse Rate: 79 Respiratory Rate: 20 Blood Pressure: 160/80 O2 Sat by Pulse Oximetry: 99 Objective Data: Redness right foot resolved. External fixator in place . Biphasic right Anterior tibial artery. Assessment Assessment: S/P I & D abscess right foot, revascularization right foot, excision cuneiform right foot and placement in external fixator. Plan Plan: Continue IV antibiotics . To OR tomorrow to remove cement in right foot wound and place wound vacuum. Patient will be placed in SNF after that.
[2023-06-23] MEDS ORDERED: ZESTRIL TAB 5 MG PO ONE (16:57)
--- NOTE | 2023-06-23 17:19 | EKG ---
Test Reason : shortness of breath, hypertension Blood Pressure : */* mmHG Vent. Rate : 112 BPM Atrial Rate : 112 BPM P-R Int : 152 ms QRS Dur : 86 ms QT Int : 334 ms P-R-T Axes : 42 34 45 degrees QTc Int : 455 ms Sinus tachycardia Otherwise normal ECG When compared with ECG of 18-JUN-2023 23:21, No significant change was found Confirmed by Tejas Li ([id number]) on 06/24/2023 7:36:57 AM Referred By: Confirmed By: Tejas Li
[2023-06-23] MEDS ORDERED: VISTARIL PO PRN (17:38)
--- NOTE | 2023-06-23 18:30 | RAD ---
EXAM:CHEST, 1 VIEWHISTORY:r foot abscess with cellullitis sob;COMPARISON:One view of the chest performed on 06/19/2023.FINDINGS:SUPPORT DEVICES: None.HEART/MEDIASTINUM: The cardiac silhouette is normal in size with central vascular congestion.LUNGS: There are increased bilateral pulmonary opacities. Lung volumes are mildly reduced. No significant pleural effusion. No pneumothorax.ADDITIONAL FINDINGS: None.IMPRESSION:Central vascular congestion with probable bilateral edema/atelectasis.THIS IS AN ELECTRONICALLY VERIFIED FINAL [id number]/2023 6:27 PM - Electronically signed by Sha Mitchell MD
[2023-06-23] MEDS ORDERED: LASIX IVP ONE (18:36)
[2023-06-23] MEDS ORDERED: APRESOLINE INJ 20 MG VIAL IVP ONE (18:41)
--- NOTE | 2023-06-23 23:29 | DR.OPNOTE ---
OP NOTE Pre-Op Diagnosis: critical ichemia right foot Post-Op Diagnosis: ene Procedure Date Date Of Procedure: 06/20/23 Procedure: PROCEDURE: DIAGNOSTIC AORTOGRAM, DIAGNOSTIC ARTERIOGRAM RIGHT LEG, ATHERECTOMY AND BALLOON ANGIOPLASTY RIGHT ANTERIOR TIBIAL ARTERY NARRATIVE : The patient was taken to the operative suite and place in the supine position. The left groin and entire right leg were prepped and draped in sterile fashion. The patient was given intravenous sedation supervised by myself. Time out for the procedure obtained. Ultrasound used to identify the left femoral artery and the skin overlying it infiltrated with 0.5% Marcaine. Ultrasound then used to guide puncture of the left femoral artery and a 0.012 inch guide wire was placed. Incision made over the guide wire at the skin edge with a # 11 knife blade and a micro sheath placed over the guide wire into the left femoral artery The small guidewire exchanged for a 0.035 inch Advantage glide wire and the micro sheath exchanged for a 5 Fr vascular sheath Patient given 5000 units of intravenous heparin. Omni catheter was placed over the guide wire into the aorta and diagnostic aortogram carried out with the power injector showing normal aorta and normal iliac arteries . Omni catheter was used to steer the guide wire down the right common iliac artery to the distal right external iliac artery . Omni catheter was exchanged for a Lempster catheter and sequential arteriograms carried out of the right lower extremity showing normal proximal arteries with severe stenosis at the takeoff of the right anterior tibial artery, rest of the anterior tibial artery patent to the foot with good collateral flow around the right foot, occluded right peroneal and right posterior tibial arteries with no reconstitution. The 5 Fr sheath in the left groin in exchanged for a 7 Fr destination sheath which was parked in the distal right superficial femoral artery. Lempster catheter and the guide wire were used to traverse the arteries of the right leg ultimately ending in the right anterior tibial artery across the proximal stenosis and into the right foot. This was selective catheterization. 0.035 inch wire removed and exchanged for a 0.014 inch wire. Over this wire we placed the [employer] atherectomy device and performed atherectomy of the proximal takeoff of the right anterior tibial artery . At this point we performed angioplasty balloon dilatation of the right anterior tibial artery takeoff using a [employer] 2.5x 100 mm [place] angioplasty balloon. At the completion of this a follow up arteriogram showed an excellent result . All wires and devices removed. The 7 Fr sheath was pulled back into the aorta and a 0.035 inch wire placed. The destination sheath exchanged for an Angioseal device used to close the puncture of the left femoral artery. Dressing applied to the left groin. The patient taken to same day surgery in good condition. Type of Anesthesia: Local (0.5% Marcaine) Anesthesia Comment: plus MAC Findings: severe stenosis at the take-off of the right anterior tibial artery with good flow of the distal anterior tibial artery into the right foot. Occluded right peroneal and right posterior tibial arteries with no obvious reconstitution in the foot. Significant collateral flow around the right foot Type of Fluids Used:: Lactated Ringers Total Amount of Fluid Infused:: 300cc Urine output: 400 cc EBL: 100 cc Complications:: none Needle/Sponge Count:: correct Disposition/Condition: Pt. tolerated procedure without difficulty. Patient taken to PACU in stable condition.
[2023-06-24] MEDS: ZOSYN VIAL 3.375 GRAMS 3.375 G in NS 100 ML IV 100 ML IV SCH ×2 (05:24→13:57)
--- NOTE | 2023-06-24 06:54 | NOTE.SOAP ---
Soap Note Note for Day of Date of Exam: 06/22/23 Subjective Data Subjective Data: POD3 Open reduction, bone debridement with application of external fixator. Patient doing well this am, he was found resting comfortably in bed. He denies any symptoms overnight and has not left his bed. Patient's son was in the room this am Objective Data Objective Data: Open wound to the medial aspect of the right foot at the instep. Wound has continuous serosanguinous drainage and the cerement is intact within the void, which was removed leaving remnants. Wound bed appeared granular. Pin sites are c lear of infection or drainage. Neurovascular status has not changed since pre op Assessment Assessment: S/P Bone debridement, open reduction and application of external fixation, Right leg (DOS: 06/21/2023) Charcot Arthropathy, Right Osteomyelitis, Right foot Plan Plan: Patient was seen at bedside POD3. Doing well, pain is well controlled on scheduled medication. Patient understands that this is a limb salvage procedure. Continue anticoagulants and IV antibiotics while in house. Dressings were changed this am; cerement was removed bedside, wound was cleansed and home VACC was applied to right medial wound. PT gait train: WB at 50% to the RLE with assistive device. Patient will need to be set up in a care facility ([facility]) as he lives on his own and will need assistance, haven't been able to get a hold of case management and will follow up tomorrow regarding rehab placement. Patient okay for discharge from podiatry standpoint. VAC applied and cement removed. Please make sure patient is discharged with home VAC supplies and prescriptions
[2023-06-24] MEDS ORDERED: CATAPRES TAB 0.1 MG PO ONE ×4 (07:59→17:16)
[2023-06-24] MEDS: ZESTRIL TAB 5 MG PO SCH (08:21)
[2023-06-24] MEDS: ASPIRIN EC 81 MG PO SCH (08:21)
[2023-06-24] MEDS: XARELTO PO SCH ×2 (08:22→20:47)
[2023-06-24] MEDS: VANCOMYCIN IV *PREMIX 1.25 G/250 ML BAG 1.25 G/250 ML PIGGYBACK IV SCH (08:38)
[2023-06-24] MEDS: DILAUDID INJ IVP PRN (16:40)
[2023-06-24] MEDS: LOPRESSOR TAB 25 MG PO SCH (17:25)
--- NOTE | 2023-06-24 19:39 | NOTE.SOAP ---
Soap Note Note for Day of Date of Exam: 06/24/23 Subjective Data Subjective Data: S/p I& D right foot medial abscess, revascularization right foot, excision of right cuneiform ( osteomyelits and Charcot foot) and placement external fixator. Antibiotic impregnated cement removed from abscess cavity and wound vacuum placed. Redness resolved right foot. Objective Data Temperature: 97.8 F Pulse Rate: 76 Respiratory Rate: 20 Blood Pressure: 187/85 O2 Sat by Pulse Oximetry: 98 Objective Data: Right foot in fixator. Biphasic doppler signal right anterior tibial artery. Redness resolved right foot. Cultures growing Enterobacter cloacae and Stapyulococcus aureus( MSSA) Both sensitive to po Cipro. Currently appropriately covered with IV VAncomycin and IV Zosyn. Assessment Assessment: As above Plan Plan: Discharge to SNF when available. Change antibiotics to PO Cipro.
[2023-06-24] MEDS ORDERED: LASIX IVP ONE (19:44)
[2023-06-24] MEDS: NovoLIN R (or HumuLIN R) SC PRN (20:49)
[2023-06-25 06:56] LABS: BASOPHILS # (AUTO) 0.1 X10^3/uL (0.0-0.1); BASOPHILS % (AUTO) 1.1 % (0.2-1.0); EOSINOPHILS # (AUTO) 0.6 x10^3/uL (0.0-0.2); EOSINOPHILS % (AUTO) 4.8 % (0.9-2.9); HEMATOCRIT 29.2 % (42.0-54.0); LYMPHOCYTES # (AUTO) 1.8 X10^3/uL (1.3-2.9); LYMPHOCYTES % (AUTO) 15.8 % (21.0-51.0); MEAN CORPUSCULAR HEMOGLOBIN 27.4 pg (27.0-34.0); MEAN CORPUSCULAR HGB CONC 34.1 g/dL (33.0-35.0); MEAN CORPUSCULAR VOLUME 80.2 fL (80.0-100.0); MEAN PLATELET VOLUME 7.8 fL (7.4-11.0); MONOCYTES # (AUTO) 0.9 x10^3/uL (0.3-0.8); MONOCYTES % (AUTO) 7.6 % (0.0-13.0); NEUTROPHILS # (AUTO) 8.1 x10^3/uL (2.2-4.8); NEUTROPHILS % (AUTO) 70.7 % (42.0-75.0); PLATELET COUNT 596 X10^3/uL (150.0-450.0); RED BLOOD COUNT 3.64 X10^6/uL (4.7-6.0); RED CELL DISTRIBUTION WIDTH 13.6 % (11.6-16.5); WHITE BLOOD COUNT 11.5 X10^3/uL (3.6-10.0)
[2023-06-25 07:09] LABS: BLOOD UREA NITROGEN 25 mg/dL (7-18); CHLORIDE 103 mmol/L (98-107); CREATININE 1.25 mg/dL (0.70-1.30); GLUCOSE 95 mg/dL (65-99); POTASSIUM 4.1 mmol/L (3.5-5.1); SODIUM 139 mmol/L (136-145); eGFR NON BLACK RACES > 60 (>60)
[2023-06-25] MEDS: XOPENEX 1.25 MG/3 ML NEBULE NEB PRN (08:01)
[2023-06-25] MEDS ORDERED: CATAPRES TAB 0.1 MG PO ONE (08:27)
[2023-06-25 08:39] VITALS: RESP 20; O2SAT 98
[2023-06-25] MEDS: ASPIRIN EC 81 MG PO SCH (08:42)
[2023-06-25] MEDS: LOPRESSOR TAB 25 MG PO SCH (08:42)
[2023-06-25] MEDS: XARELTO PO SCH (08:42)
[2023-06-25] MEDS: ZESTRIL TAB 5 MG PO SCH (08:42)
--- NOTE | 2023-06-25 10:59 | W.DIS.FURT ---
Summary of Discharge Discharge Summary of Date Date of Exam: 06/25/23 Admission Date Date of Admission: 06/18/23 Admission Diagnosis Patient Problems (Updated 06/25/23 @ 10:14 by Chepe Billings) Abscess of right foot (Acute) L02.611 Cellulitis of right foot (Acute) L03.115 Hospital Course: This patient is a 72 year old male with a history of diabetes and hypertension and tobacco abuse. He presented with a large abscess to the medial aspect of the right foot with elements of Charcot foot and critical ischemia. He was admitted and placed on IV antibiotics. His admission date was June 18. Initial surgery was done on June 19 to drain the abscess and place a wound vacuum. CT angiogram had been obtained showing evidence of poor run off to the right foot. 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 He underwent atherectomy and balloon angioplasty of the anterior tibial artery . After this was performed he was seen in consultation by Dr. Mueller of Podiatry who performed removal of the cuneiform form of the right foot which was causing pressure on the area resulting in the abscess and Dr. Mueller also placed him in an external fixator and placed antibiotic impregnated cement in the wound which was removed on June 24 and wound vacuum placed. He will be discharged to a Assisted Facility. He will continue on as usual medications which we listed. I have also added Lopressor 25 mg BID to help control his blood pressure. He will follow up with me in one week. Vital Signs: Vital Signs (72 hours) 06/22/23 13:19 06/23/23 16:24 06/24/23 19:33 Temperature 97.8 F 98.3 F 97.8 F Pulse Rate 71 79 76 Pulse Rate [Left Radial] Respiratory Rate 18 20 20 Blood Pressure 152/75 160/80 187/85 Blood Pressure [Left Arm] Blood Pressure [Right Arm] O2 Sat by Pulse Oximetry 100 99 98 Oxygen Delivery Method Oxygen Flow Rate FIO2% 06/22/23 12:00 06/22/23 16:00 06/22/23 19:00 Temperature 97.8 F 97.7 F Pulse Rate Pulse Rate [Left Radial] 71 83 Respiratory Rate 18 18 Blood Pressure Blood Pressure [Left Arm] Blood Pressure [Right Arm] 152/75 175/80 O2 Sat by Pulse Oximetry 100 95 Oxygen Delivery Method Nasal Cannula Nasal Cannula Nasal Cannula Oxygen Flow Rate FIO2% 06/22/23 19:57 06/22/23 23:38 06/22/23 20:55 Temperature 98.4 F 97.5 F L Pulse Rate Pulse Rate [Left Radial] 90 92 H Respiratory Rate 20 20 Blood Pressure Blood Pressure [Left Arm] Blood Pressure [Right Arm] 182/84 174/82 O2 Sat by Pulse Oximetry 99 98 Oxygen Delivery Method Nasal Cannula Nasal Cannula Nasal Cannula Oxygen Flow Rate 2 FIO2% 28 06/23/23 04:00 06/22/23 21:45 06/23/23 04:42 Temperature 97.9 F Pulse Rate 98 H Pulse Rate [Left Radial] 97 H Respiratory Rate 20 Blood Pressure Blood Pressure [Left Arm] Blood Pressure [Right Arm] 210/108 O2 Sat by Pulse Oximetry 97 97 Oxygen Delivery Method Room Air Nasal Cannula Oxygen Flow Rate 3 2 FIO2% 28 06/23/23 05:56 06/23/23 06:40 06/23/23 07:12 Temperature Pulse Rate Pulse Rate [Left Radial] 96 H Respiratory Rate 20 Blood Pressure Blood Pressure [Left Arm] Blood Pressure [Right Arm] 200/95 217/97 141/82 O2 Sat by Pulse Oximetry 97 Oxygen Delivery Method Nasal Cannula Oxygen Flow Rate 3 FIO2% 06/23/23 07:00 06/23/23 08:00 06/23/23 12:00 Temperature 97.7 F 97.8 F Pulse Rate Pulse Rate [Left Radial] 69 72 Respiratory Rate 20 20 Blood Pressure Blood Pressure [Left Arm] 136/73 Blood Pressure [Right Arm] 177/83 O2 Sat by Pulse Oximetry 99 96 Oxygen Delivery Method Nasal Cannula Room Air Nasal Cannula Oxygen Flow Rate 3 2 FIO2% 06/23/23 15:48 06/23/23 16:54 06/23/23 17:20 Temperature 98.3 F 97.6 F Pulse Rate 111 H Pulse Rate [Left Radial] 79 96 H Respiratory Rate 20 Blood Pressure Blood Pressure [Left Arm] 160/80 Blood Pressure [Right Arm] 210/110 O2 Sat by Pulse Oximetry 99 96 96 Oxygen Delivery Method Nasal Cannula Nasal Cannula Oxygen Flow Rate 2 FIO2% 06/23/23 17:37 06/23/23 17:50 06/23/23 18:01 Temperature Pulse Rate Pulse Rate [Left Radial] Respiratory Rate 28 H Blood Pressure Blood Pressure [Left Arm] 200/110 225/121 220/110 Blood Pressure [Right Arm] O2 Sat by Pulse Oximetry 95 Oxygen Delivery Method Nasal Cannula Oxygen Flow Rate 3.5 FIO2% 06/23/23 18:24 06/23/23 17:00 06/23/23 18:40 Temperature 97.6 F Pulse Rate Pulse Rate [Left Radial] 92 H Respiratory Rate 25 H 28 H Blood Pressure Blood Pressure [Left Arm] 190/100 180/102 Blood Pressure [Right Arm] O2 Sat by Pulse Oximetry 97 97 Oxygen Delivery Method Nasal Cannula Nasal Cannula Nasal Cannula Oxygen Flow Rate 3.5 2 2 FIO2% 06/23/23 19:49 06/23/23 19:00 06/23/23 19:37 Temperature 97.8 F Pulse Rate Pulse Rate [Left Radial] 81 88 Respiratory Rate 22 18 Blood Pressure Blood Pressure [Left Arm] 150/76 177/83 Blood Pressure [Right Arm] O2 Sat by Pulse Oximetry 98 98 Oxygen Delivery Method Nasal Cannula Nasal Cannula Nasal Cannula Oxygen Flow Rate 2 2 2 FIO2% 06/23/23 20:00 06/23/23 20:00 06/23/23 20:35 Temperature 97.8 F 97.6 F Pulse Rate Pulse Rate [Left Radial] 71 88 Respiratory Rate 19 18 Blood Pressure Blood Pressure [Left Arm] 140/67 177/83 Blood Pressure [Right Arm] O2 Sat by Pulse Oximetry 99 98 Oxygen Delivery Method Nasal Cannula Nasal Cannula Nasal Cannula Oxygen Flow Rate 2 2 2 FIO2% 28 06/23/23 20:35 06/23/23 21:39 06/24/23 00:00 Temperature 97.4 F L Pulse Rate 88 Pulse Rate [Left Radial] 74 Respiratory Rate 18 Blood Pressure Blood Pressure [Left Arm] 130/68 159/79 Blood Pressure [Right Arm] O2 Sat by Pulse Oximetry 98 99 Oxygen Delivery Method Nasal Cannula Oxygen Flow Rate 2 FIO2% 06/24/23 04:00 06/24/23 07:57 06/24/23 08:10 Temperature 98.0 F 97.6 F Pulse Rate Pulse Rate [Left Radial] 67 79 Respiratory Rate 18 76 H Blood Pressure Blood Pressure [Left Arm] 172/87 198/100 192/95 Blood Pressure [Right Arm] O2 Sat by Pulse Oximetry 97 97 Oxygen Delivery Method Room Air Nasal Cannula Oxygen Flow Rate 2 2 FIO2% 06/24/23 08:20 06/24/23 07:00 06/24/23 08:30 Temperature Pulse Rate Pulse Rate [Left Radial] Respiratory Rate Blood Pressure Blood Pressure [Left Arm] 186/86 170/81 Blood Pressure [Right Arm] O2 Sat by Pulse Oximetry Oxygen Delivery Method Nasal Cannula Oxygen Flow Rate 2 FIO2% 06/24/23 08:40 06/24/23 08:50 06/24/23 09:00 Temperature Pulse Rate Pulse Rate [Left Radial] Respiratory Rate Blood Pressure Blood Pressure [Left Arm] 163/75 169/74 170/82 Blood Pressure [Right Arm] O2 Sat by Pulse Oximetry Oxygen Delivery Method Oxygen Flow Rate FIO2% 06/24/23 09:18 06/24/23 09:20 06/24/23 09:30 Temperature Pulse Rate Pulse Rate [Left Radial] Respiratory Rate Blood Pressure Blood Pressure [Left Arm] 163/77 157/74 Blood Pressure [Right Arm] O2 Sat by Pulse Oximetry Oxygen Delivery Method Nasal Cannula Oxygen Flow Rate 2 FIO2% 28 06/24/23 11:54 06/24/23 12:15 06/24/23 12:30 Temperature 98.1 F Pulse Rate Pulse Rate [Left Radial] 73 Respiratory Rate 20 Blood Pressure Blood Pressure [Left Arm] 192/86 189/92 213/98 Blood Pressure [Right Arm] O2 Sat by Pulse Oximetry 100 Oxygen Delivery Method Room Air Oxygen Flow Rate FIO2% 06/24/23 12:45 06/24/23 12:55 06/24/23 13:15 Temperature Pulse Rate Pulse Rate [Left Radial] Respiratory Rate Blood Pressure Blood Pressure [Left Arm] 203/100 197/106 204/102 Blood Pressure [Right Arm] O2 Sat by Pulse Oximetry Oxygen Delivery Method Oxygen Flow Rate FIO2% 06/24/23 13:30 06/24/23 13:45 06/24/23 13:55 Temperature Pulse Rate Pulse Rate [Left Radial] Respiratory Rate Blood Pressure Blood Pressure [Left Arm] 193/92 181/79 166/77 Blood Pressure [Right Arm] O2 Sat by Pulse Oximetry Oxygen Delivery Method Oxygen Flow Rate FIO2% 06/24/23 14:06 06/24/23 16:00 06/24/23 16:40 Temperature 97.9 F Pulse Rate Pulse Rate [Left Radial] 76 Respiratory Rate 20 20 Blood Pressure Blood Pressure [Left Arm] 152/66 187/85 Blood Pressure [Right Arm] O2 Sat by Pulse Oximetry 98 Oxygen Delivery Method Room Air Oxygen Flow Rate FIO2% 06/24/23 17:10 06/24/23 20:00 06/24/23 19:00 Temperature 97.9 F Pulse Rate Pulse Rate [Left Radial] 67 Respiratory Rate 20 20 Blood Pressure Blood Pressure [Left Arm] 136/65 Blood Pressure [Right Arm] O2 Sat by Pulse Oximetry 98 Oxygen Delivery Method Nasal Cannula Oxygen Flow Rate 2 FIO2% 06/25/23 00:00 06/24/23 21:10 06/24/23 21:10 Temperature 98.1 F Pulse Rate 81 Pulse Rate [Left Radial] 69 Respiratory Rate 18 Blood Pressure Blood Pressure [Left Arm] 158/74 Blood Pressure [Right Arm] O2 Sat by Pulse Oximetry 98 97 Oxygen Delivery Method Nasal Cannula Oxygen Flow Rate 2 FIO2% 28 06/25/23 04:00 06/25/23 08:00 06/25/23 08:30 Temperature 98.0 F 97.4 F L Pulse Rate Pulse Rate [Left Radial] 71 80 Respiratory Rate 18 20 Blood Pressure Blood Pressure [Left Arm] 174/82 204/99 200/90 Blood Pressure [Right Arm] O2 Sat by Pulse Oximetry 97 98 Oxygen Delivery Method Room Air Oxygen Flow Rate FIO2% 06/25/23 07:00 06/25/23 08:00 06/25/23 08:47 Temperature 97.4 F L Pulse Rate Pulse Rate [Left Radial] 80 Respiratory Rate 20 Blood Pressure Blood Pressure [Left Arm] 204/99 186/87 Blood Pressure [Right Arm] O2 Sat by Pulse Oximetry 98 Oxygen Delivery Method Nasal Cannula Room Air Oxygen Flow Rate 2 FIO2% 06/25/23 09:08 06/25/23 08:01 06/25/23 09:20 Temperature Pulse Rate Pulse Rate [Left Radial] Respiratory Rate Blood Pressure Blood Pressure [Left Arm] 168/73 169/70 Blood Pressure [Right Arm] O2 Sat by Pulse Oximetry Oxygen Delivery Method Nasal Cannula Oxygen Flow Rate 2 FIO2% 28 06/25/23 09:40 06/25/23 09:53 Temperature Pulse Rate Pulse Rate [Left Radial] Respiratory Rate Blood Pressure Blood Pressure [Left Arm] 162/78 141/67 Blood Pressure [Right Arm] O2 Sat by Pulse Oximetry Oxygen Delivery Method Oxygen Flow Rate FIO2% Labs: Laboratory Last Values WBC 11.5 X10^3/uL (3.6-10.0) H 06/25/23 05:42 RBC 3.64 X10^6/uL (4.7-6.0) L 06/25/23 05:42 Hgb 10.0 g/dL (13.5-18.0) L 06/25/23 05:42 Hct 29.2 % (42.0-54.0) L 06/25/23 05:42 MCV 80.2 fL (80.0-100.0) 06/25/23 05:42 MCH 27.4 pg (27.0-34.0) 06/25/23 05:42 MCHC 34.1 g/dL (33.0-35.0) 06/25/23 05:42 RDW 13.6 % (11.6-16.5) 06/25/23 05:42 Plt Count 596 X10^3/uL (150.0-450.0) H 06/25/23 05:42 MPV 7.8 fL (7.4-11.0) 06/25/23 05:42 Neut % (Auto) 70.7 % (42.0-75.0) 06/25/23 05:42 Lymph % (Auto) 15.8 % (21.0-51.0) L 06/25/23 05:42 [place] % (Auto) 7.6 % (0.0-13.0) 06/25/23 05:42 Eos % (Auto) 4.8 % (0.9-2.9) H 06/25/23 05:42 Baso % (Auto) 1.1 % (0.2-1.0) H 06/25/23 05:42 Neut # (Auto) 8.1 x10^3/uL (2.2-4.8) H 06/25/23 05:42 Lymph # (Auto) 1.8 X10^3/uL (1.3-2.9) 06/25/23 05:42 [place] # (Auto) 0.9 x10^3/uL (0.3-0.8) H 06/25/23 05:42 Eos # (Auto) 0.6 x10^3/uL (0.0-0.2) H 06/25/23 05:42 Baso # (Auto) 0.1 X10^3/uL (0.0-0.1) 06/25/23 05:42 Absolute Nucleated RBC 0.0 /100WBC 06/25/23 05:42 Sodium 139 mmol/L (136-145) 06/25/23 05:42 Corrected Sodium TNP 06/25/23 05:42 Potassium 4.1 mmol/L (3.5-5.1) 06/25/23 05:42 Chloride 103 mmol/L (98-107) 06/25/23 05:42 Carbon Dioxide 28.0 mmol/L (21-32) 06/25/23 05:42 BUN 25 mg/dL (7-18) H 06/25/23 05:42 Creatinine 1.25 mg/dL (0.70-1.30) 06/25/23 05:42 Est GFR (MDRD) Af Amer > 60 (>60) 06/25/23 05:42 Est GFR (MDRD) Non-Af > 60 (>60) 06/25/23 05:42 Glucose 95 mg/dL (65-99) 06/25/23 05:42 Lactic Acid 1.1 mmol/L (0.4-2.0) 06/18/23 17:36 Calcium 9.0 mg/dL (8.5-10.1) 06/25/23 05:42 Corrected Calcium 10.3 mg/dL (8.5-10.1) H 06/19/23 05:21 Magnesium 1.5 mg/dL (2.0-2.9) L 06/25/23 05:42 Total Bilirubin 0.50 mg/dL (0.2-1.0) 06/19/23 05:21 AST 28 Units/L (15-37) 06/19/23 05:21 ALT 30 Units/L (12-78) 06/19/23 05:21 Alkaline Phosphatase 161 Units/L (46-116) H 06/19/23 05:21 Total Protein 5.8 g/dL (6.4-8.2) L 06/19/23 05:21 Albumin 1.3 g/dL (3.4-5.0) L 06/19/23 05:21 Globulin 4.5 g/dL (2.5-4.5) 06/19/23 05:21 Albumin/Globulin Ratio 0.3 Ratio (1.1-2.1) L 06/19/23 05:21 Vancomycin Trough 23.4 ug/mL (15-20) H* 06/21/23 20:30 Random Vancomycin 17.0 ug/mL 06/22/23 08:18 Reason For Visit: R FOOT ABSCESS WITH CELLULITIS Discharge Date Discharge Date: 06/25/23 Discharge Diagnosis All Active Problems (Updated 06/25/23 @ 10:14 by Chepe Billings) Atherosclerosis of [place] arteries of extremities with rest pain, right leg (Acute) Charcot arthropathy of midfoot (Acute) Atherosclerosis of [place] arteries of extremities with intermittent claudication, right leg (Acute) Abscess of right foot (Acute) Cellulitis of right foot (Acute) Plan of Treatment: Continue with present treatment and follow up plan. Pt is to keep follow up appointment as instructed and take medications as ordered. Discharge Medications Discharge Medications: No Known Allergies Allergy (Verified 06/18/23 18:52) CONTINUE taking the following medications cholecalciferol (vitamin D3) 50 mcg (2,000 unit) tablet (Vitamin D3) 100 mcg PO DAILY 06/18/23 [History] glipizide 10 mg tablet 10 mg PO QAM 06/18/23 [History] insulin glargine 100 unit/mL subcutaneous solution 10 unit subcut DAILYAC 06/18/23 [History] lisinopril 2.5 mg tablet 2.5 mg PO DAILY 06/18/23 [History] metformin 500 mg tablet 500 mg PO BID 06/18/23 [History] glipizide 10 mg tablet 5 mg PO 1700 06/19/23 [History] Lopressor 25 mg po BID [place] 5mg, 1po q6hr PRN pain Bactrim DS 1 po BID Xarelto 2.5 mg po BID Discharge Disposition Assessment: see hospital course Discharge Plan Discharge Plan Hospital Course: This patient is a 72 year old male with a history of diabetes and hypertension and tobacco abuse. He presented with a large abscess to the medial aspect of the right foot with elements of Charcot foot and critical ischemia. He was admitted and placed on IV antibiotics. His admission date was June 18. Initial surgery was done on June 19 to drain the abscess and place a wound vacuum. CT angiogram had been obtained showing evidence of poor run off to the right foot. 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 He underwent atherectomy and balloon angioplasty of the anterior tibial artery . After this was performed he was seen in consultation by Dr. Mueller of Podiatry who performed removal of the cuneiform form of the right foot which was causing pressure on the area resulting in the abscess and Dr. Mueller also placed him in an external fixator and placed antibiotic impregnated cement in the wound which was removed on June 24 and wound vacuum placed. He will be discharged to a Assisted Facility. He will continue on as usual medications which we listed. I have also added Lopressor 25 mg BID to help control his blood pressure. He will follow up with me in one week. Patient Disposition: Disch/Tx to Rehabilitation Fac Condition: Stable Health Concerns: Post Hospitalization: new medications and changes needed to prevent readmission or further decline. Pt educated and given instructions on all concerns. Care Plan Goals: Acheive stability of right foot with healing of wound Plan of Treatment: Continue with present treatment and follow up plan. Pt is to keep follow up appointment as instructed and take medications as ordered. Assessment: see hospital course Prescription drug monitoring program results: PDMP reviewed and no concerns identified Prescriptions: New aspirin 81 mg Tablet,Delayed Release (Dr/Ec) 81 mg PO DAILY Qty: 100 0RF lisinopril 5 mg Tablet 5 mg PO DAILY Qty: 30 0RF metoprolol tartrate 25 mg Tablet 25 mg PO BID Qty: 60 6RF Xarelto 2.5 mg Tablet 2.5 mg PO BID Qty: 180 0RF Continued metformin 500 mg Tablet 500 mg PO BID insulin glargine 100 unit/mL Solution 10 unit SUBCUT DAILYAC glipizide 10 mg Tablet 10 mg PO QAM lisinopril 2.5 mg Tablet 2.5 mg PO DAILY cholecalciferol (vitamin D3) [Vitamin D3] 50 mcg (2,000 unit) Tablet 100 mcg PO DAILY glipizide 10 mg Tablet 5 mg PO 1700 Orders to Discharge Patient Discharge Orders: Discharge (Routine); Ordered 06/25/23 Ordered By: Chepe Billings Follow ups/Referrals Follow ups/Referrals: Isaac Rolon [Primary Care Provider] - 3 days Price Mueller [CONSULTING PHYSICIAN] - 07/04/23 1:30 pm Chepe Billings [STAFF PHYSICIAN] - 07/09/23 9:30 am Instructions Instructions: Endovascular Therapy for Peripheral Vascular Disease, Care After
[2023-06-25 12:13] VITALS: PULSE 68; TEMP 97.7
--- NOTE | 2023-06-25 12:36 | NOTE.SOAP ---
Soap Note Note for Day of Date of Exam: 06/22/23 Subjective Data Subjective Data: POD4 Open reduction, bone debridement with application of external fixator. Patient doing well this afternoon, he was found resting comfortably in bed. He denies any symptoms overnight and has not left his bed. Objective Data Objective Data: Deferred wound check- VACC applied and has good seal. Approximately 5cc of drainage since yesterday. Pin sites are clear of infection or drainage. Neurovascular status has not changed since pre op Assessment Assessment: S/P Bone debridement, open reduction and application of external fixation, Right leg (DOS: 06/21/2023) Charcot Arthropathy, Right Osteomyelitis, Right foot Plan Plan: Patient was seen at bedside POD4. Doing well, pain is well controlled on scheduled medication. Patient understands that this is a limb salvage procedure. Continue anticoagulants and IV antibiotics while in house. PT gait train: WB at 50% to the RLE with assistive device. Patient waiting on transport to rehab. Please make sure patient is discharged with home VAC supplies and prescriptions
[2023-06-25 13:21] VITALS: BP 139/97
== END 2023-06-25 14:30 | DRG 603 ==
LOC: ER 16:24 → MED/SURG 19:36
PROVIDERS: ADMIT Surgery; ATTEND Surgery
PROC: APEXFIX (2023-06-21 16:15)
DX: R06.02 Shortness of breath; K21.9 Gastro-esophageal reflux disease without esophagitis; L02.611 Cutaneous abscess of right foot; M21.6X1 Other acquired deformities of right foot; B95.61 Methicillin susceptible Staphylococcus aureus infection as the cause of diseases classified elsewhere; M86.171 Other acute osteomyelitis, right ankle and foot; I70.211 Atherosclerosis of native arteries of extremities with intermittent claudication, right leg; I10 Essential (primary) hypertension; E11.610 Type 2 diabetes mellitus with diabetic neuropathic arthropathy; B96.89 Other specified bacterial agents as the cause of diseases classified elsewhere; R26.89 Other abnormalities of gait and mobility; L03.115 Cellulitis of right lower limb; E11.65 Type 2 diabetes mellitus with hyperglycemia; I25.10 Atherosclerotic heart disease of native coronary artery without angina pectoris

== ENCOUNTER 2025-08-21 11:22 | Observation (INO) ==
--- NOTE | 2025-08-21 11:34 | EKG ---
Test Reason : SOB Blood Pressure : */* mmHG Vent. Rate : 55 BPM Atrial Rate : 55 BPM P-R Int : 232 ms QRS Dur : 102 ms QT Int : 482 ms P-R-T Axes : 12 -4 -29 degrees QTc Int : 461 ms Sinus bradycardia with 1st degree AV block Nonspecific T wave abnormality Prolonged QT Abnormal ECG When compared with ECG of 11-AUG-2025 20:25, [place] interval has increased Criteria for Septal infarct are no longer present Nonspecific T wave abnormality now evident in Inferior leads T wave inversion less evident in Anterior leads Confirmed by Roberto Carlos Anton MD ([id number]) on 08/22/2025 7:03:02 AM Referred By: Confirmed By: Roberto Carlos Anton MD
--- NOTE | 2025-08-21 11:51 | DR.SOBA ---
HPI Time Seen Time Seen by Provider: 08/21/25 11:25 Primary Care Physician Primary Care Physician: WILFREDO schuler Complaints Chief Complaint Doctors Comments: 75-year-old male to ED from home POV with son Complains of shortness of breath. Patient is status post CABG 8 days ago [facility], was in hospital until yesterday and discharged. Son says he could have been discharged sooner but was having kidney issues. Patient denies any chest pain Chief Complaint:: Patient son states that patient was having shortness of breath this morning while talking. Patient had triple bypass surgery in the last week (he is unsure of what day). Was discharged home yesterday. denies chest pain. only c/o shortness of breath with talking. COVID-19 Coronavirus risk:travel/contact w/high risk person: No Has patient experienced Coronavirus symptoms: No Source History Provided: Patient and Family Member Mode of Arrival Mode of Arrival: Wheelchair Timing Onset of Chief Complaint: 08/21/25 PMH PMH Past Medical History: Yes Past Medical History: Diabetes, GERD, Hypertension and Cancer Past Surgical History: Yes Surgical History: Ortho Surgery Past Surgical History Comment: triple bypass Family History History of Family Medical Conditions: Yes Family Medical History: Diabetes Mellitus, Cancer and Heart Failure Social History Do you use any recreational Drugs:: No Lives With: Family Lives Where: Home Travel Risk Coronavirus risk:travel/contact w/high risk person: No Has patient experienced Coronavirus symptoms: No Infectious screening Have you traveled outside the country in the last 6 months?: No Isolation: Standard ROS Review of Systems Constitutional: No Symptoms Reported Eyes: No Symptoms Reported ENTM: No Symptoms Reported Respiratoy: Short of Breath Cardiovascular: No Symptoms Reported Gastrointestinal/Abdominal: No Symptoms Reported Genitourinary: No Symptoms Reported Neurological: No Symptoms Reported Musculoskeletal: No Symptoms Reported Integumentary: No Symptoms Reported Hematologic/Lymphatic: No Symptoms Reported Endocrine: No Symptoms Reported Psychiatric: No Symptoms Reported All Other Systems: Reviewed and Negative PE Vital Signs Vitals: Vital Signs Temperature 97.6 F Pulse Rate 55 Pulse Rate 57 Pulse Rate 51 Pulse Rate 55 Respiratory Rate 32 Respiratory Rate 26 Respiratory Rate 18 Respiratory Rate 18 Blood Pressure 161/72 Blood Pressure 139/65 O2 Sat by Pulse Oximetry 98 O2 Sat by Pulse Oximetry 99 O2 Sat by Pulse Oximetry 97 O2 Sat by Pulse Oximetry 98 General Limitations: No Limitations General Appearance: Alert and In No Apparent Distress Head Head Exam: Normal Inspection Eyes Eye exam: Normal Appearance ENT ENT Exam: Normal Exam Neck Neck Exam: Normal Inspection Chest Chest Inspection: Normal Inspection Respiratory Respiratory Exam: Normal Lung Sounds Bilat Respiratory Exam: Bilateral: Clear to Auscultation Cardiovascular Cardiovascular Exam: Regular Rate and Normal Rhythm Abdominal Exam Abdominal Exam: Normal Inspection, Normal Bowel Sounds and Soft Extremities Extremities Exam: Normal Inspection Back Back Exam: Normal Inspection Neurologic Neurological Exam: Alert and Oriented X3 Psychiatric Psychiatric Exam: Normal Affect and Normal Mood Skin Skin Exam: Warm, Dry, Intact and Normal Color COURSE Treatment Treatment: Discussed findings with patient and family. Discussed with Dr. Toussaint will admit ROR Labs Reviewed 08/21/25 11:45 08/21/25 11:45 Laboratory: WBC 15.0 X10^3/uL (3.6-10.0) H 08/21/25 11:45 RBC 3.99 X10^6/uL (4.7-6.0) L 08/21/25 11:45 Hgb 10.9 g/dL (13.5-18.0) L 08/21/25 11:45 Hct 32.7 % (42.0-54.0) L 08/21/25 11:45 MCV 82.0 fL (80.0-100.0) 08/21/25 11:45 MCH 27.3 pg (27.0-34.0) 08/21/25 11:45 MCHC 33.2 g/dL (33.0-35.0) 08/21/25 11:45 RDW 14.8 % (11.6-16.5) 08/21/25 11:45 Plt Count 371 X10^3/uL (150.0-450.0) 08/21/25 11:45 Plt Count Comment Adequate (ADEQUATE) 08/21/25 11:45 MPV 8.5 fL (7.4-11.0) 08/21/25 11:45 Neut % (Auto) 84.9 % (42.0-75.0) H 08/21/25 11:45 Lymph % (Auto) 5.9 % (21.0-51.0) L 08/21/25 11:45 [place] % (Auto) 3.2 % (0.0-13.0) 08/21/25 11:45 Eos % (Auto) 5.8 % (0.9-2.9) H 08/21/25 11:45 Baso % (Auto) 0.2 % (0.2-1.0) 08/21/25 11:45 Neut # (Auto) 12.8 x10^3/uL (2.2-4.8) H 08/21/25 11:45 Lymph # (Auto) 0.9 X10^3/uL (1.3-2.9) L 08/21/25 11:45 [place] # (Auto) 0.5 x10^3/uL (0.3-0.8) 08/21/25 11:45 Eos # (Auto) 0.9 x10^3/uL (0.0-0.2) H 08/21/25 11:45 Baso # (Auto) 0.0 X10^3/uL (0.0-0.1) 08/21/25 11:45 Absolute Nucleated RBC 0.0 /100WBC 08/21/25 11:45 Total Counted 100 08/21/25 11:45 Neutrophils % (Manual) 90 % (39-76) H 08/21/25 11:45 Lymphocytes % (Manual) 4 % (13-43) L 08/21/25 11:45 Monocytes % (Manual) 3 % (4-9) L 08/21/25 11:45 Eosinophils % (Manual) 3 % (0-6) 08/21/25 11:45 Plt Morphology Comment Normal (NORMAL) 08/21/25 11:45 RBC Morphology Normal (NORMAL) 08/21/25 11:45 PT 14.6 SECONDS (11.8-14.3) 08/21/25 11:45 INR Target Range - 08/21/25 11:45 INR 1.12 (0.8-1.3) 08/21/25 11:45 Sodium 135 mmol/L (136-145) L 08/21/25 11:45 Corrected Sodium TNP 08/21/25 11:45 Potassium 4.8 mmol/L (3.5-5.1) 08/21/25 11:45 Chloride 100 mmol/L (98-107) 08/21/25 11:45 Carbon Dioxide 26.9 mmol/L (21-32) 08/21/25 11:45 BUN 85 mg/dL (7-18) H 08/21/25 11:45 Creatinine 3.00 mg/dL (0.70-1.30) H 08/21/25 11:45 Est GFR (MDRD) Af Amer 26 (>60) L 08/21/25 11:45 Est GFR (MDRD) Non-Af 22 (>60) L 08/21/25 11:45 Glucose 94 mg/dL (65-99) 08/21/25 11:45 Calcium 8.4 mg/dL (8.5-10.1) L 08/21/25 11:45 Corrected Calcium 9.9 mg/dL (8.5-10.1) 08/21/25 11:45 Total Bilirubin 0.40 mg/dL (0.2-1.0) 08/21/25 11:45 AST 22 Units/L (15-37) 08/21/25 11:45 ALT 20 Units/L (12-78) 08/21/25 11:45 Alkaline Phosphatase 149 Units/L (46-116) H 08/21/25 11:45 Creatine Kinase 59 Units/L (39-308) 08/21/25 11:45 Troponin I High Sens 223.2 ng/L (4.0-60.0) H* 08/21/25 11:45 B-Natriuretic Peptide 2570 pg/mL (0-79) H 08/21/25 11:45 Total Protein 6.7 g/dL (6.4-8.2) 08/21/25 11:45 Albumin 2.1 g/dL (3.4-5.0) L 08/21/25 11:45 Globulin 4.6 g/dL (2.5-4.5) H 08/21/25 11:45 Albumin/Globulin Ratio 0.5 Ratio (1.1-2.1) L 08/21/25 11:45 XRAY X-ray Results: nad Mild CHF IMPRESSION: Cardiomegaly without carlos congestive failure. EKG Rate: 55 [place]: Normal Rhythm: SB ST: Nonsp Opioid Opioid Risk Tool Age (Spike box if 16-45): No History of Preadolescent Sexual Abuse: No Total: 0 Total Score Risk Category: Low Risk Copyright: Orville NAVARRO predicting aberrant behaviors Discharge Plan Diagnosis Discharge Problem: CHF (congestive heart failure), Chronic renal insufficiency, CHF following cardiac surgery, postop Discharge Plan Patient Disposition: ADMITTED INPATIENT Condition: Stable Prescriptions: No Action atorvastatin 40 mg Tablet 40 mg PO QHS amiodarone 200 mg Tablet 200 mg PO BID benzonatate 200 mg Capsule 200 mg PO TID oxycodone-acetaminophen 5-325 mg Tablet 1 tab PO Q4H PRN amlodipine 10 mg Tablet 10 mg PO QDAY ferrous sulfate 325 mg (65 mg iron) Tablet 325 mg PO BID aspirin 81 mg Tablet 81 mg PO QDAY glucagon 1 mg/0.2 mL Solution 1 mg SUBCUT Q20M PRN Rx Instructions: until target blood sugar attained insulin glargine 100 unit/mL Solution 5 unit SUBCUT DAILYAC Rx Instructions: if glucose greater than 200 may increase by 2 units every 3 days cholecalciferol (vitamin D3) [Vitamin D3] 50 mcg (2,000 unit) Tablet 100 mcg PO DAILY Health Concerns: Post Hospitalization: new medications and changes needed to prevent readmission or further decline. Pt educated and given instructions on all concerns. Plan of Treatment: Continue with present treatment and follow up plan. Pt is to keep follow up appointment as instructed and take medications as ordered. Orders to Discharge Patient Discharge Orders: Transfer (Routine); Ordered 08/21/25 Ordered By: Justin Meyer Follow ups/Referrals Follow ups/Referrals: Jeannie ROSENBERGc [Primary Care Provider] - 3 days Instructions Print Language: GREEK
[2025-08-21 11:52] LABS: MEAN PLATELET VOLUME 8.5 fL (7.4-11.0); RED CELL DISTRIBUTION WIDTH 14.8 % (11.6-16.5)
--- NOTE | 2025-08-21 11:59 | RAD ---
EXAM: CHEST, 1 VIEW HISTORY: Shortness of breath COMPARISON: Frontal chest radiograph August 11, 2025 TECHNIQUE: 1 frontal view of the chest FINDINGS: Median sternotomy wires are noted. The heart silhouette is enlarged. There is blunting of the costophrenic angles which suggests possible pleural fluid. No pneumothorax. IMPRESSION: Cardiomegaly without carlos congestive failure. Blunting of the costophrenic angles suggesting pleural effusions. THIS IS AN ELECTRONICALLY VERIFIED FINAL REPORT 08/21/2025 11:56 AM - Electronically signed by Adriel Agustin MD
[2025-08-21 12:05] LABS: INR 1.12 (0.8-1.3)
[2025-08-21 12:17] LABS: PLATELET MORPHOLOGY COMMENT NORMAL (NORMAL)
[2025-08-21] MEDS: LASIX IVP ONE (12:20)
[2025-08-21 12:40] LABS: COR CA(FOR HYPOALB) 9.9 mg/dL (8.5-10.1); CREATININE 3.00 mg/dL (0.70-1.30); eGFR NON BLACK RACES 22 (>60)
[2025-08-21] MEDS ORDERED: ULTRAM PO PRN (15:16)
[2025-08-21] MEDS ORDERED: NORCO 5/325 MG TAB PO PRN (15:16)
[2025-08-21] MEDS ORDERED: TYLENOL 325 MG TAB PO PRN (15:16)
[2025-08-21] MEDS: CONSULT PHARMACY - POTASSIUM & MAGNESIUM XX SCH (15:47)
[2025-08-21] MEDS: LANTUS SC SCH (16:03)
[2025-08-21] MEDS: COLACE CAP 100 MG PO SCH (20:46)
[2025-08-21] MEDS: CORDARONE TAB 200 MG PO SCH (20:46)
[2025-08-21] MEDS: SNACK - Diabetic Appropriate PO SCH (20:46)
[2025-08-21] MEDS: NovoLIN R (or HumuLIN R) SUBCUT PRN (21:29)
[2025-08-22 06:45] LABS: MEAN PLATELET VOLUME 8.6 fL (7.4-11.0); RED CELL DISTRIBUTION WIDTH 14.6 % (11.6-16.5)
[2025-08-22 07:07] LABS: COR CA(FOR HYPOALB) 9.9 mg/dL (8.5-10.1); COR NA(FOR HYPERGLY) 138.0 mmol/L (136-145); CREATININE 2.8 mg/dL (0.70-1.30); eGFR NON BLACK RACES 24.0 (>60)
[2025-08-22] MEDS: NORVASC TAB 10 MG PO SCH (08:30)
[2025-08-22] MEDS: ASPIRIN 81 MG CHEWTAB PO SCH (08:31)
[2025-08-22] MEDS: LANTUS SC SCH (08:31)
[2025-08-22] MEDS ORDERED: PATIENT'S HOME MEDICATION (Aspirin 81 mg Tablet) PO SCH (09:00)
[2025-08-22] MEDS ORDERED: ASPIRIN EC 81 MG PO SCH (09:00)
--- NOTE | 2025-08-22 15:30 | DR.H&P ---
H&P History & Physical for Day of: H&P Date: 08/22/25 Chief Complaint Chief Complaint: Shortness of breath History of Present Illness History of Present Illness: Patient discharged from [facility] yesterday and brought home by his son. Once he was home, they noted that his legs seemed edematous and he was slightly more dyspneic. Send immediately brought him to ER where his BNP was found to be almost as elevated as it was prior to his transfer to [place] for CABG but the troponin was greatly improved. Otherwise appeared benign with findings consistent with heart failure. He did well overnight and reports that he is doing much better this morning. He has not been out of bed yet today. Nurses are planning on get him to the bedside chair. Leg swelling is much improved per staff. Patient feels much more comfortable and feels like he will be able to go back home in the next 24-48 hours. ROS: 12 point ROS negative except as noted above. PE: Elderly male in no acute distress. Head NCAT with hearing grossly normal. Heart regular rate and rhythm. Lungs clear with strong speech. Postoperative bandaging is present over the sternal and across the epigastrium. They are clean and dry. Belly is soft and nontender with bowel sounds present. Legs have 1+ pitting edema at the ankles with trace edema of the calves. He is able to move all extremities well. His mood and affect are appropriate. Skin turgor is good for his age. Past Medical History Past Medical History: Diabetes, GERD, Hypertension and Cancer Additional Medical History: Hx of prostate cancer Past Surgical History Surgical History: CABG/Valve Surgery and Ortho Surgery Additional Surgical History: history of prostate cancer Family History Family Medical History: Diabetes Mellitus, Coronary Artery Disease and Heart Failure Social History Does patient currently use any type of tobacco product: No Type of Tobacco Use: Cigarettes How many years tobacco product used: 2 Does any household member use tobacco: No Alcohol Use: None Drug Use: None Medications Home Medications: Home Medications Medication Instructions Recorded Confirmed Type cholecalciferol (vitamin D3) 50 100 mcg PO DAILY 06/1808/21/25 History mcg (2,000 unit) tablet (Vitamin D3) insulin glargine 100 unit/mL 5 unit subcut DAILYAC 07/0108/21/25 History subcutaneous solution amiodarone 200 mg tablet 200 mg PO BID 08/21/2508/21 History amlodipine 10 mg tablet 10 mg PO QDAY 08/21/2508/21 History aspirin 81 mg tablet 81 mg PO QDAY 08/21/2508/21 History atorvastatin 40 mg tablet 40 mg PO QHS 08/21/25 History benzonatate 200 mg capsule 200 mg PO TID 08/21/2508/09 History ferrous sulfate 325 mg (65 mg 325 mg PO BID 08/21/25 1 10/22/24 History iron) tablet glucagon 1 mg/0.2 mL subcutaneous 1 mg subcut Q20M PRN 08/21/25 08/21/25 History solution oxycodone-acetaminophen 5 mg-325 1 tab PO Q4H PRN 08/0908/21/25 History mg tablet Allergies Allergies Allergy/AdvReac Type Severity Reaction Status Date / Time No Known Allergies Allergy Verified 08/21/25 11:47 Labs 08/22/25 06:12 08/22/25 06:12 Labs: Laboratory WBC 13.4 X10^3/uL (3.6-10.0) H 08/22/25 06:12 RBC 3.46 X10^6/uL (4.7-6.0) L 08/22/25 06:12 Hgb 9.5 g/dL (13.5-18.0) L 08/22/25 06:12 Hct 28.2 % (42.0-54.0) L 08/22/25 06:12 MCV 81.4 fL (80.0-100.0) 08/22/25 06:12 MCH 27.5 pg (27.0-34.0) 08/22/25 06:12 MCHC 33.7 g/dL (33.0-35.0) 08/22/25 06:12 RDW 14.6 % (11.6-16.5) 08/22/25 06:12 Plt Count 345 X10^3/uL (150.0-450.0) 08/22/25 06:12 Plt Count Comment Adequate (ADEQUATE) 08/21/25 11:45 MPV 8.6 fL (7.4-11.0) 08/22/25 06:12 Neut % (Auto) 72.6 % (42.0-75.0) 08/22/25 06:12 Lymph % (Auto) 7.7 % (21.0-51.0) L 08/22/25 06:12 [place] % (Auto) 10.6 % (0.0-13.0) 08/22/25 06:12 Eos % (Auto) 8.3 % (0.9-2.9) H 08/22/25 06:12 Baso % (Auto) 0.8 % (0.2-1.0) 08/22/25 06:12 Neut # (Auto) 9.7 x10^3/uL (2.2-4.8) H 08/22/25 06:12 Lymph # (Auto) 1.0 X10^3/uL (1.3-2.9) L 08/22/25 06:12 [place] # (Auto) 1.4 x10^3/uL (0.3-0.8) H 08/22/25 06:12 Eos # (Auto) 1.1 x10^3/uL (0.0-0.2) H 08/22/25 06:12 Baso # (Auto) 0.1 X10^3/uL (0.0-0.1) 08/22/25 06:12 Absolute Nucleated RBC 0.1 /100WBC 08/22/25 06:12 Total Counted 100 08/21/25 11:45 Neutrophils % (Manual) 90 % (39-76) H 08/21/25 11:45 Lymphocytes % (Manual) 4 % (13-43) L 08/21/25 11:45 Monocytes % (Manual) 3 % (4-9) L 08/21/25 11:45 Eosinophils % (Manual) 3 % (0-6) 08/21/25 11:45 Plt Morphology Comment Normal (NORMAL) 08/21/25 11:45 RBC Morphology Normal (NORMAL) 08/21/25 11:45 PT 14.6 SECONDS (11.8-14.3) 08/21/25 11:45 INR Target Range - 08/21/25 11:45 INR 1.12 (0.8-1.3) 08/21/25 11:45 Sodium 137 mmol/L (136-145) 08/22/25 06:12 Corrected Sodium 138 mmol/L (136-145) 08/22/25 06:12 Potassium 4.7 mmol/L (3.5-5.1) 08/22/25 06:12 Chloride 103 mmol/L (98-107) 08/22/25 06:12 Carbon Dioxide 26.0 mmol/L (21-32) 08/22/25 06:12 BUN 82 mg/dL (7-18) H 08/22/25 06:12 Creatinine 2.80 mg/dL (0.70-1.30) H 08/22/25 06:12 Est GFR (MDRD) Af Amer 28 (>60) L 08/22/25 06:12 Est GFR (MDRD) Non-Af 24 (>60) L 08/22/25 06:12 Glucose 153 mg/dL (65-99) H 08/22/25 06:12 Calcium 8.1 mg/dL (8.5-10.1) L 08/22/25 06:12 Corrected Calcium 9.9 mg/dL (8.5-10.1) 08/22/25 06:12 Total Bilirubin 0.20 mg/dL (0.2-1.0) 08/22/25 06:12 AST 25 Units/L (15-37) 08/22/25 06:12 ALT 20 Units/L (12-78) 08/22/25 06:12 Alkaline Phosphatase 132 Units/L (46-116) H 08/22/25 06:12 Creatine Kinase 59 Units/L (39-308) 08/21/25 11:45 Troponin I High Sens 223.2 ng/L (4.0-60.0) H* 08/21/25 11:45 B-Natriuretic Peptide 2570 pg/mL (0-79) H 08/21/25 11:45 Total Protein 5.7 g/dL (6.4-8.2) L 08/22/25 06:12 Albumin 1.8 g/dL (3.4-5.0) L 08/22/25 06:12 Globulin 3.9 g/dL (2.5-4.5) 08/22/25 06:12 Albumin/Globulin Ratio 0.5 Ratio (1.1-2.1) L 08/22/25 06:12 Physical Exam Vital Signs: Vital Signs Temperature 97.9 F Temperature 97.5 F Pulse Rate [Radial] 56 Pulse Rate [Radial] 55 Respiratory Rate 18 Respiratory Rate 18 Blood Pressure [Left Arm] 137/69 Blood Pressure [Left Arm] 158/76 O2 Sat by Pulse Oximetry 96 O2 Sat by Pulse Oximetry 96 Assessment/Plan (1) CHF following cardiac surgery, postop: Narrative Support Text: No IV fluids. Cardiac diet. Out of bed as tolerated. Reassess. Resume appropriate cardiac meds. Likely home tomorrow or the next day. Status: Acute (2) Atherosclerotic heart disease of [place] coronary artery without angina pectoris: Qualifiers: [place] vs. transplanted heart: platinum heart Qualified Code(s): I25.10 - Atherosclerotic heart disease of [place] coronary artery without angina pectoris Status: Chronic (3) Essential (primary) hypertension: Status: Chronic (4) Mixed hyperlipidemia: Status: Chronic (5) Type 2 diabetes mellitus with hyperglycemia: Qualifiers: Diabetes mellitus fpc insulin use: with fpc use Qualified Code(s): E11.65 - Type 2 diabetes mellitus with hyperglycemia; Z79.4 - long-term (current) use of insulin Status: Chronic (6) Type 2 diabetes mellitus with diabetic chronic kidney disease: Qualifiers: Diabetes mellitus intermediate accountant insulin use: with fpc use Chronic kidney disease stage: stage 4 (GFR 15-29) Qualified Code(s): E11.22 - Type 2 diabetes mellitus with diabetic chronic kidney disease; N18.4 - Chronic kidney disease, stage 4 (severe); Z79.4 - watermaster (current) use of insulin Status: Chronic
[2025-08-22] MEDS ORDERED: SNACK - Diabetic Appropriate PO SCH (20:00)
[2025-08-22] MEDS: FERROUS GLUCONATE PO SCH (20:55)
[2025-08-22] MEDS: LIPITOR TAB 40 MG PO SCH (20:55)
[2025-08-22] MEDS ORDERED: PATIENT'S HOME MEDICATION (Ferrous Sulfate 325 mg (65 mg iron) Tablet) PO SCH (21:00)
[2025-08-23 06:01] LABS: MEAN PLATELET VOLUME 8.4 fL (7.4-11.0); RED CELL DISTRIBUTION WIDTH 14.7 % (11.6-16.5)
[2025-08-23 06:14] LABS: COR CA(FOR HYPOALB) 9.9 mg/dL (8.5-10.1); COR NA(FOR HYPERGLY) 139.0 mmol/L (136-145); CREATININE 2.62 mg/dL (0.70-1.30); eGFR NON BLACK RACES 25.0 (>60)
[2025-08-23 08:31] VITALS: BP 160/69; PULSE 60; RESP 19; TEMP 98; O2SAT 96
[2025-08-23 08:43] VITALS: BMI 29.7
--- NOTE | 2025-08-23 09:37 | PCM.DCPLAN ---
DISCHARGE SUMMARY Admission Date Date of Admission: 08/21/25 Discharge Date Discharge Date: 08/23/25 Admission Diagnoses (1) CHF following cardiac surgery, postop: Status: Acute (2) Atherosclerotic heart disease of [place] coronary artery without angina pectoris: Status: Chronic (3) Essential (primary) hypertension: Status: Chronic (4) Mixed hyperlipidemia: Status: Chronic (5) Type 2 diabetes mellitus with hyperglycemia: Status: Chronic (6) Type 2 diabetes mellitus with diabetic chronic kidney disease: Status: Chronic Discharge Medications Discharge Medications: Home Medication List amiodarone 200 mg tablet 200 mg PO BID 08/21/25 [History] amlodipine 10 mg tablet 10 mg PO QDAY 08/21/25 [History] aspirin 81 mg tablet 81 mg PO QDAY 08/21/25 [History] atorvastatin 40 mg tablet 40 mg PO QHS 08/21/25 [History] benzonatate 200 mg capsule 200 mg PO TID 08/21/25 [History] ferrous sulfate 325 mg (65 mg iron) tablet 325 mg PO BID 08/21/25 [History] glucagon 1 mg/0.2 mL subcutaneous solution 1 mg subcut Q20M PRN 08/21/25 [History] oxycodone-acetaminophen 5 mg-325 mg tablet 1 tab PO Q4H PRN 08/21/25 [History] Prescriptions: Hospital Course Vital Signs: Vital Signs Temperature 98.1 F Temperature 97.9 F Pulse Rate [Radial] 58 Pulse Rate [Radial] 57 Respiratory Rate 18 Respiratory Rate 17 Blood Pressure [Left Arm] 138/64 Blood Pressure [Left Arm] 152/69 O2 Sat by Pulse Oximetry 97 O2 Sat by Pulse Oximetry 97 Latest Lab Results: Laboratory Last Values WBC 13.4 X10^3/uL (3.6-10.0) H 08/23/25 05:35 RBC 3.44 X10^6/uL (4.7-6.0) L 08/23/25 05:35 Hgb 9.4 g/dL (13.5-18.0) L 08/23/25 05:35 Hct 28.0 % (42.0-54.0) L 08/23/25 05:35 MCV 81.4 fL (80.0-100.0) 08/23/25 05:35 MCH 27.2 pg (27.0-34.0) 08/23/25 05:35 MCHC 33.4 g/dL (33.0-35.0) 08/23/25 05:35 RDW 14.7 % (11.6-16.5) 08/23/25 05:35 Plt Count 388 X10^3/uL (150.0-450.0) 08/23/25 05:35 Plt Count Comment Adequate (ADEQUATE) 08/21/25 11:45 MPV 8.4 fL (7.4-11.0) 08/23/25 05:35 Neut % (Auto) 69.8 % (42.0-75.0) 08/23/25 05:35 Lymph % (Auto) 8.3 % (21.0-51.0) L 08/23/25 05:35 [place] % (Auto) 10.9 % (0.0-13.0) 08/23/25 05:35 Eos % (Auto) 10.3 % (0.9-2.9) H 08/23/25 05:35 Baso % (Auto) 0.7 % (0.2-1.0) 08/23/25 05:35 Neut # (Auto) 9.3 x10^3/uL (2.2-4.8) H 08/23/25 05:35 Lymph # (Auto) 1.1 X10^3/uL (1.3-2.9) L 08/23/25 05:35 [place] # (Auto) 1.5 x10^3/uL (0.3-0.8) H 08/23/25 05:35 Eos # (Auto) 1.4 x10^3/uL (0.0-0.2) H 08/23/25 05:35 Baso # (Auto) 0.1 X10^3/uL (0.0-0.1) 08/23/25 05:35 Absolute Nucleated RBC 0.0 /100WBC 08/23/25 05:35 Total Counted 100 08/21/25 11:45 Neutrophils % (Manual) 90 % (39-76) H 08/21/25 11:45 Lymphocytes % (Manual) 4 % (13-43) L 08/21/25 11:45 Monocytes % (Manual) 3 % (4-9) L 08/21/25 11:45 Eosinophils % (Manual) 3 % (0-6) 08/21/25 11:45 Plt Morphology Comment Normal (NORMAL) 08/21/25 11:45 RBC Morphology Normal (NORMAL) 08/21/25 11:45 PT 14.6 SECONDS (11.8-14.3) 08/21/25 11:45 INR Target Range - 08/21/25 11:45 INR 1.12 (0.8-1.3) 08/21/25 11:45 Sodium 137 mmol/L (136-145) 08/23/25 05:35 Corrected Sodium 139 mmol/L (136-145) 08/23/25 05:35 Potassium 4.7 mmol/L (3.5-5.1) 08/23/25 05:35 Chloride 103 mmol/L (98-107) 08/23/25 05:35 Carbon Dioxide 27.5 mmol/L (21-32) 08/23/25 05:35 BUN 77 mg/dL (7-18) H 08/23/25 05:35 Creatinine 2.62 mg/dL (0.70-1.30) H 08/23/25 05:35 Est GFR (MDRD) Af Amer 31 (>60) L 08/23/25 05:35 Est GFR (MDRD) Non-Af 25 (>60) L 08/23/25 05:35 Glucose 163 mg/dL (65-99) H 08/23/25 05:35 Calcium 8.1 mg/dL (8.5-10.1) L 08/23/25 05:35 Corrected Calcium 9.9 mg/dL (8.5-10.1) 08/23/25 05:35 Total Bilirubin 0.20 mg/dL (0.2-1.0) 08/23/25 05:35 AST 23 Units/L (15-37) 08/23/25 05:35 ALT 24 Units/L (12-78) 08/23/25 05:35 Alkaline Phosphatase 166 Units/L (46-116) H 08/23/25 05:35 Creatine Kinase 59 Units/L (39-308) 08/21/25 11:45 Troponin I High Sens 223.2 ng/L (4.0-60.0) H* 08/21/25 11:45 B-Natriuretic Peptide 2570 pg/mL (0-79) H 08/21/25 11:45 Total Protein 5.6 g/dL (6.4-8.2) L 08/23/25 05:35 Albumin 1.7 g/dL (3.4-5.0) L 08/23/25 05:35 Globulin 3.9 g/dL (2.5-4.5) 08/23/25 05:35 Albumin/Globulin Ratio 0.4 Ratio (1.1-2.1) L 08/23/25 05:35 Hospital Course: Patient responded well to gentle diuresis. Breathing is back to baseline and able to eat and communicate without difficulty. Leg swelling is greatly improved but still present. He has been able to ambulate with minimal assistan ce. He would like to go home today. Already had HHS through [facility] from [facility]. Living with son. Continue home meds with addition of Lasix. Check daily weights, BP, and heart rate. Follow-up with cardiology on schedule, nephrology in the next 1-2 weeks, & PCP in 1-2 weeks. PE: Elderly male in no acute distress sitting up in bed. He is feeding himself breakfast. Head NCAT with hearing grossly normal. Heart regular rate and rhythm with clean dry dressing to the sternum. Lungs are clear with strong speech. Belly is soft and nontender with bowel sounds present, no other dressing over his epigastrium. Leg still 1+ pitting edema of the ankles but slightly improved from yesterday. Able to move extremities well.
== END 2025-08-23 11:20 | disposition home or self-care (01) ==
LOC: MED/SURG 11:22 → ER 11:22 → MED/SURG 15:18
PROVIDERS: ADMIT Family Medicine; ATTEND Family Medicine
DX: R26.89 Other abnormalities of gait and mobility; Z85.46 Personal history of malignant neoplasm of prostate; E83.51 Hypocalcemia; Z79.899 Other long term (current) drug therapy; K21.9 Gastro-esophageal reflux disease without esophagitis; D72.828 Other elevated white blood cell count; R00.0 Tachycardia, unspecified; E11.22 Type 2 diabetes mellitus with diabetic chronic kidney disease; D64.89 Other specified anemias; N18.4 Chronic kidney disease, stage 4 (severe); Z58.89 Other problems related to physical environment; E11.65 Type 2 diabetes mellitus with hyperglycemia; Z79.4 Long term (current) use of insulin; R94.31 Abnormal electrocardiogram [ECG] [EKG]; R06.02 Shortness of breath; Z95.2 Presence of prosthetic heart valve; R79.89 Other specified abnormal findings of blood chemistry; I11.0 Hypertensive heart disease with heart failure; I97.130 Postprocedural heart failure following cardiac surgery; I25.810 Atherosclerosis of coronary artery bypass graft(s) without angina pectoris; N17.8 Other acute kidney failure; R74.8 Abnormal levels of other serum enzymes; E87.1 Hypo-osmolality and hyponatremia; I50.9 Heart failure, unspecified; Z60.8 Other problems related to social environment; E78.2 Mixed hyperlipidemia; R94.4 Abnormal results of kidney function studies